=== PATIENT | male | born 1945 | race Caucasian/White ===

== ENCOUNTER 2017-04-23 03:19 | Inpatient (IN) | payer MEDICARE, OTHER ==
[~2017-04-23] VITALS: Ht 162.6 cm; Wt 107.0 kg
[2017-04-23] VITALS (13 sets, daily range): BP systolic 16–167; BP diastolic 56–96
[~2017-04-23 03:19] MED LIST: ASPI325T11 PO; CELE200C PO; LOSA25TA4 PO; LOSA50TA2 PO; METO25TA2 PO; METO25TA4 PO; METO25TA9 PO; MULT-245 PO; NITR0.4T22 SL; PRAS10TA9 PO; RANI150T6 PO; SIMV40TA PO; TAMS0.4C97 PO; TRAM-48 PO; VARD10TA4 PO
[2017-04-23 03:35] LABS: BASO # 0.1 x10^3/uL (0.0-0.2); BASO % 1 % (0-3); EOS % 3 % (0-3); HEMATOCRIT 41.4 % (39.0-53.0); LYMPH # 2.5 x10^3/uL (1.0-4.8); LYMPH % 40 % (24-48); MEAN CORPUSCULAR HEMOGLOBIN 31 pg (25-35); MEAN CORPUSCULAR HGB CONC 34 g/dL (31-37); MEAN CORPUSCULAR VOLUME 92 fL (79-100); MONO % 10 % (0-9); NEUT % 47 % (31-73); PLATELET COUNT 250 x10^3/uL (140-400); RED BLOOD COUNT 4.51 x10^6/uL (4.30-5.70); RED CELL DISTRIBUTION WIDTH 14.4 % (11.5-14.5); WHITE BLOOD COUNT 6.4 x10^3/uL (4.0-11.0)
[2017-04-23 03:44] LABS: CALCIUM 8.7 mg/dL (8.5-10.1); CREATININE 1.6 mg/dL (0.7-1.3); GFR 42.6; POTASSIUM 4.1 mmol/L (3.5-5.1)
[2017-04-23 03:49] LABS: ALBUMIN 3.5 g/dL (3.4-5.0); ALBUMIN/GLOBULIN RATIO 1.2 (1.0-1.7); TOTAL BILIRUBIN 0.5 mg/dL (0.2-1.0); TOTAL PROTEIN 6.5 g/dL (6.4-8.2)
[2017-04-23] MEDS ORDERED: NITROGLYCERIN OINT 1 GM PACKET. TP ONE (04:00)
[2017-04-23] MEDS ORDERED: NITROGLYCERIN SUBLINGUAL 0.4 MG BOTTLE OF 25. SL PRN (04:00)
[2017-04-23] MEDS ORDERED: ACETAMINOPHEN 325 MG TABLET. PO PRN (04:00)
[2017-04-23] MEDS ORDERED: ONDANSETRON PF 4 MG/2 ML VIAL. IV PRN (04:00)
--- NOTE | 2017-04-23 05:13 | PHYS DOC ---
Past Medical History Past Medical History: GERD, High Cholesterol, Hypertension, Other Additional Past Medical Histor: ED, urinary frequency Past Surgical History: Appendectomy, Coronary Bypass Surgery, Other Additional Past Surgical Histo: ortho, carpal tunnel, bilat ankles, R. elbow, disk replaced in neck Alcohol Use: None Drug Use: None Adult General Chief Complaint Chief Complaint: CHEST PAIN HPI HPI Patient is a 72 year old gentleman with a history significant for coronary disease and hypertension who had a stent placed approximately 2 weeks ago presents to the ER today complaining of sharp midsternal chest pressure that is identical to the pain that he had 2 to when he had his stent placed. Patient denies any fevers shakes chills nausea vomiting or diarrhea. Patient does admit to shortness of breath and diaphoresis. Patient denies any radiating pain. Patient reports that the pain started on he was sleeping and woke him up. Patient reports that the pain is almost completely resolved after getting medicine by EMS. Patient's physical exam is unremarkable. Patient's ER workup has been negative. Patient's EKG reveals normal sinus rhythm at a heart rate of [address]-T wave abnormalities without any evidence of ST elevation RI. Assessment and plan this is a 75 year-old gentleman who presents here today complaining of chest pain who had a recent cardiac catheter done and a stent placement. Patient does not recall who is PCP or transmission worker is. Given the patient's history of recent coronary disease and stent we will admit the patient for further cardiac evaluation. Review of Systems Review of Systems Constitutional: Denies fever or chills [] Eyes: Denies change in visual acuity, redness, or eye pain [] All other review systems are negative except as documented in the history of present illness portion. Current Medications Current Medications Current Medications Medications (Trade) Dose Ordered Sig/[facility] Start Time Stop Time Status Last Admin Dose Admin Acetaminophen (Tylenol) 650 mg PRN Q4HRS PRN 04/23/17 04:00 04/24/17 03:59 Nitroglycerin (Nitro-Bid Oint) 1 inch 1X ONCE 04/23/17 04:00 04/23/17 04:01 DC 04/23/17 04:11 1 INCH Nitroglycerin (Nitrostat) 0.4 mg PRN Q5MIN PRN 04/23/17 04:00 04/24/17 03:59 Ondansetron HCl (Zofran) 4 mg PRN Q8HRS PRN 04/23/17 04:00 04/24/17 03:59 Allergies Allergies Allergies Coded Allergies Type Severity Reaction Last Updated Verified codeine Allergy Intermediate Anxiety 03/20/14 Yes morphine Allergy Intermediate anxiety 04/14/17 Yes Physical Exam Physical Exam Constitutional: Well developed, well nourished, no acute distress, non-toxic appearance. [] HENT: Normocephalic, atraumatic, bilateral external ears normal, oropharynx moist, no oral exudates, nose normal. [] Eyes: PERRLA, EOMI, conjunctiva normal, no discharge. [] Neck: Normal range of motion, no tenderness, supple, no stridor. [] Cardiovascular:Heart rate regular rhythm, Lungs & Thorax: Bilateral breath sounds clear to auscultation [] Abdomen: Bowel sounds normal, soft, no tenderness, no masses, no pulsatile masses. [] Skin: Warm, dry, no erythema, no rash. [] Back: No tenderness, no CVA tenderness. [] Extremities: No tenderness, no cyanosis, no clubbing, ROM intact, no edema. [] Neurologic: Alert and oriented X 3, normal motor function, normal sensory function, no focal deficits noted. [] Psychologic: Affect normal, judgement normal, mood normal. [] Current Patient Data Vital Signs Vital Signs Date Time Temp Pulse Resp B/P (MAP) Pulse Ox O2 Delivery O2 Flow Rate FiO2 04/23/17 03:54 62 125/59 (81) 96 Room Air 04/23/17 03:23 97.9 18 97.9 Lab Values Laboratory Tests Test 04/23/17 03:31 White Blood Count 6.4 x10^3/uL (4.0-11.0) Red Blood Count 4.51 x10^6/uL (4.30-5.70) Hemoglobin 14.0 g/dL (13.0-17.5) Hematocrit 41.4 % (39.0-53.0) Mean Corpuscular Volume 92 fL (79-100) Mean Corpuscular Hemoglobin 31 pg (25-35) Mean Corpuscular Hemoglobin Concent 34 g/dL (31-37) Red Cell Distribution Width 14.4 % (11.5-14.5) Platelet Count 250 x10^3/uL (140-400) Neutrophils (%) (Auto) 47 % (31-73) Lymphocytes (%) (Auto) 40 % (24-48) Monocytes (%) (Auto) 10 % (0-9) H Eosinophils (%) (Auto) 3 % (0-3) Basophils (%) (Auto) 1 % (0-3) Neutrophils # (Auto) 3.0 x10^3uL (1.8-7.7) Lymphocytes # (Auto) 2.5 x10^3/uL (1.0-4.8) Monocytes # (Auto) 0.6 x10^3/uL (0.0-1.1) Eosinophils # (Auto) 0.2 x10^3/uL (0.0-0.7) Basophils # (Auto) 0.1 x10^3/uL (0.0-0.2) Sodium Level 144 mmol/L (136-145) Potassium Level 4.1 mmol/L (3.5-5.1) Chloride Level 108 mmol/L (98-107) H Carbon Dioxide Level 29 mmol/L (21-32) Anion Gap 7 (6-14) Blood Urea Nitrogen 23 mg/dL (8-26) Creatinine 1.6 mg/dL (0.7-1.3) H Estimated GFR (Cockcroft-Gault) 42.6 BUN/Creatinine Ratio 14 (6-20) Glucose Level 150 mg/dL (70-99) H Calcium Level 8.7 mg/dL (8.5-10.1) Total Bilirubin 0.5 mg/dL (0.2-1.0) Aspartate Amino Transferase (AST) 45 U/L (15-37) H Alanine Aminotransferase (ALT) 68 U/L (16-63) H Alkaline Phosphatase 76 U/L (46-116) Troponin I Quantitative < 0.017 ng/mL (0.000-0.055) Total Protein 6.5 g/dL (6.4-8.2) Albumin 3.5 g/dL (3.4-5.0) Albumin/Globulin Ratio 1.2 (1.0-1.7) Laboratory Tests 04/23/17 03:31 Laboratory Tests 04/23/17 03:31 EKG EKG [] Radiology/Procedures Radiology/Procedures [] Course & Med Decision Making Course & Med Decision Making Pertinent Labs and Imaging studies reviewed. (See chart for details) [] Dragon Disclaimer Dragon Disclaimer This electronic medical record was generated, in whole or in part, using a voice recognition dictation system. Departure Departure Impression: Primary Impression: Chest pain Disposition: 09 ADMITTED INPATIENT Admitting Physician: Evangelina Jacob Condition: IMPROVED Referrals: UNKNOWN PCP NAME (PCP) CECILIA BOWEN MD Apr 23, 2017 05:13
--- NOTE | 2017-04-23 05:20 | ACF ---
Admission Forms Criteria CHEST PAIN Clinical Indications for Admission to Inpatient Care (Place 'X' for any and all applicable criteria): Admission is indicated for chest pain and ANY ONE of the following(1)(2)(3)(4)(5 ): [ ]I. Angina with acute coronary syndrome (Also use Myocardial Infarction or Angina guideline) [ ]II. Hemodynamic instability [X]III. Angina needing acute intervention as indicated by ALL of the following( 11)(12): [X]a) Unstable angina is present as indicated by angina that is ANY ONE of the following: [ ]i) New onset [ ]ii) Nocturnal [ ]iii) Prolonged at rest [X]iv) Progressive [X]b) Angina warrants acute intervention as indicated by ANY ONE of the following: [ ]i) Recurrent angina (e.g, not responding as previously to treatment) [ ]ii) Angina at rest or with low-level activities despite initial medical therapy [ ]iii) New or presumably new ST-segment depression on ECG [ ]iv) Signs or symptoms of heart failure (eg, dyspnea, pulmonary edema) [ ]v) New or worsening mitral regurgitation [ ]vi) Hemodynamic instability [ ]vii) Dangerous arrhythmia (eg, sustained ventricular tachycardia) [X]viii) History of percutaneous coronary intervention within 6 months [ ]ix) History of coronary artery bypass graft surgery [ ]x) AMBAR risk score of 2 or greater[A] [ ]xi) History of Diabetes(14) [ ]xii) High-risk cardiac ischemia findings on noninvasive testing (e.g, echocardiogram, treadmill testing, nuclear scan) [ ]xiii) Chronic renal insufficiency (ie, estimated GFR less than 60 mL/min/1.732m) [ ]xiv) Left ventricular ejection fraction less than 40% [ ]IV. Evidence of CO (eg, cardiac biomarkers positive, ST-segment elevation on ECG) also use Myocardial Infarction Criteria Form. [ ]V. Pulmonary edema [ ]. Respiratory distress [ ]VII. Chest pain indicative of serious diagnosis other than coronary artery disease (eg, aortic dissection) [ ]VIII. Contraindications and/or Inappropriate clinical situations for Observational Care in patients with Chest Pain, when ANY ONE of the following is required: [ ]a) Patient with risk factor for pulmonary embolism, acute coronary syndrome and myocardial infarction (18) [ ]b) Patient with Pulmonary embolism require an average LOS of 4.3 days, therefore emergency department observation management is inappropriate 18,23 [ ]c) Painful condition/s in the elderly, have the highest rate of recidivism after emergency department observation management (10.8%) 20,21,22 [ ]d) Elevated cardiac biomarker requires intensive and exhaustive care (19) [ ]IX. General contraindications and/or Inappropriate clinical situations for Observational Care in patients with Chest Pain, when ANY ONE of the following is required: [ ]a) Prediction of prolongation of LOS based on ANY ONE of the following may be considered as a contraindication for observational care 2, 3, 4, 5, 6, 7, 8, 9, 10, 11 [ ]i) Age > 65 yrs. [ ]ii) Patient arriving by ambulance [ ]iii) Patient with high acuity [ ]iv) Patient requiring vital sign monitoring [ ]v) Patient on IV medication [ ]b) Systolic blood pressures 180mmHg 3,12 [ ]c) Patient with altered mental status including delirium and other alteration of consciousness, (3) [ ]d) Patient whose discharge disposition will be to a prison home or rehabilitation home should not be managed in Emergency Department Observation Unit. CMS rule requires 3 days hospital stay before such placement. 3,13 [ ]e) Patient with failure to thrive due to broad array of etiologies 3,16,17 [ ]f) Inability to ambulate 3,14 Extended stay beyond goal length of stay may be needed for (1)(28): [ ]a) Specific condition diagnosed after evaluation (eg, pulmonary embolism, aortic dissection) [ ]b) Unstable angina [ ]c) Continued suspicion of acute coronary syndrome with inability to complete needed cardiac evaluation (eg, patient clinically unable to undergo stress testing) [ ]d) Myocardial infarction (Contents from ANGINA and CHEST PAIN clinical indications for admission to inpatient care have been integrated in this form) The original [employer] content created by [employer] has been revised. The portions of the content which have been revised are identified through the use of italic text or in bold, and [employer] has neither reviewed nor approved the modified material. All other unmodified content is copyright [employer]. Please see references footnoted in the original [facility] edition 2016 Admission Criteria Met?: Yes SALAZAR OGDEN Apr 23, 2017 05:19
[2017-04-23] MEDS: fentaNYL PF VIAL 100 MCG/2 ML VIAL IV PRN ×2 (06:05→08:44)
--- NOTE | 2017-04-23 07:23 | RAD ---
Portable chest, 04/23/2017: History: Chest pain Comparison is made to a study from 04/13/2017. There as been a previous median sternotomy. The heart size and pulmonary vascularity are normal. The lungs are clear. There is no evidence of pleural fluid. IMPRESSION: No acute cardiopulmonary abnormality is detected.
[2017-04-23] MEDS ORDERED: FEXO180T81 PO (07:47)
[2017-04-23] MEDS ORDERED: METO25TA4 PO (07:47)
--- NOTE | 2017-04-23 08:19 | PDOC1 ---
History and Physical Date of Admission Date of Admission DATE: 04/23/17 TIME: 08:19 Identification/Chief Complaint Chief Complaint chest pain Problems: Source Source: Chart review, Patient History of Present Illness History of Present Illness Mr. Killian, is a 72 year old gentleman who awoke with acute left of sternal chest pain, called EMS from home. Pain 6/10, mild fluctuation in pain, some relief with IV meds for about 2 hours. He had a stent placed 2 weeks ago, after having the same sharp midsternal chest pressure. He had resolution of pain for 2 weeks until 0100 this AM compliance with all meds reported, he has not had a f.u appt yet. Past Medical History Cardiovascular: CAD, HTN, Hyperlipidemia, Other Pulmonary: No pertinent hx CENTRAL NERVOUS SYSTEM: Carpal Tunnel Syndrome, Vertigo GI: Constipation, GERD Heme/Onc: No pertinent hx Hepatobiliary: No pertinent hx Psych: No pertinent hx Musculoskeletal: Osteoarthritis Rheumatologic: No pertinent hx Infectious disease: No pertinent hx Renal/: Benign prostatic enlarg., Other Endocrine: No pertinent hx Past Surgical History Past Surgical History: Appendectomy, CABG (2010), Cataract Removal, Hernia Repair, Total knee replacement, Tonsillectomy, Other Family History Family History: Cancer Social History Smoke: Quit (vry long time ago) ALCOHOL: none Drugs: None Current Problem List Problem List Problems Medical Problems: (1) Chest pain Status: Acute Problems: Current Medications Current Medications Current Medications Ondansetron HCl (Zofran) 4 mg PRN Q8HRS PRN IV NAUSEA/VOMITING; Start 04/23/17 at 04:00; Stop 04/24/17 at 03:59 Acetaminophen (Tylenol) 650 mg PRN Q4HRS PRN PO FEVER; Start 04/23/17 at 04:00 ; Stop 04/24/17 at 03:59 Nitroglycerin (Nitrostat) 0.4 mg PRN Q5MIN PRN SL CHEST PAIN Last administered on 04/23/17 05:37; Start 04/23/17 at 04:00; Stop 04/24/17 at 03:59 Nitroglycerin (Nitro-Bid Oint) 1 inch 1X ONCE TP Last administered on 04:11; Start 04/23/17 at 04:00; Stop 04/23/17 at 04:01; Status DC Fentanyl Citrate (Fentanyl 2ml Vial) 50 mcg PRN Q2HR PRN IV PAIN Last administered on 04/23/17t 06:05; Start 04/23/17 at 06:00 Aspirin (Gayle Aspirin) 325 mg DAILYWBKFT PO ; Start 04/23/17 at 09:00 Losartan Potassium (Cozaar) 50 mg DAILY PO ; Start 04/23/17 at 09:00 Metoprolol Succinate (Toprol Xl) 12.5 mg DAILY PO ; Start 04/23/17 at 09:00 Prasugrel (Effient) 10 mg DAILYWBKFT PO ; Start 04/23/17 at 09:00 Simvastatin (Zocor) 40 mg HS PO ; Start 04/23/17 at 21:00 Tamsulosin HCl (Flomax) 0.4 mg HS PO ; Start 04/23/17 at 21:00 Famotidine (Pepcid) 20 mg DAILY PO ; Start 04/23/17 at 09:00 Active Scripts Active Cozaar (Losartan Potassium) 50 Mg Tablet 50 Mg PO DAILY 30 Days Effient (Prasugrel Hcl) 10 Mg Tablet 10 Mg PO DAILYWBKFT 30 Days Metoprolol Succinate ( Xl ) (Metoprolol Succinate) 25 Mg Tab.er.24h 12.5 Mg PO DAILY 30 Days Reported Marcia Allergy (Fexofenadine Hcl) 180 Mg Tablet 180 Mg PO DAILY Metoprolol Tartrate 25 Mg Tablet 12.5 Mg PO BID NITROGLYCERIN SubLingual (Nitroglycerin) 0.4 Mg Tab.subl 0.4 Mg SL PRN Q5MIN PRN Multi Vitamin Daily (Multivitamin) 1 Each Tablet 1 Each PO DAILY Flomax (Tamsulosin Hcl) 0.4 Mg Cap.er.24h 0.4 Mg PO HS Ultram (Tramadol Hcl) 50 Mg Tablet 50 Mg PO HS Zocor (Simvastatin) 40 Mg Tablet 40 Mg PO HS Zantac (Ranitidine Hcl) 150 Mg Tablet 150 Mg PO BID Aspirin Ec (Aspirin) 325 Mg Tablet.dr 325 Mg PO DAILY Levitra (Vardenafil Hcl) 10 Mg Tablet 10 Mg PO PRN Allergies Allergies: Coded Allergies: codeine (Verified Allergy, Intermediate, Anxiety, 03/20/14) morphine (Verified Allergy, Intermediate, anxiety, 04/14/17) ROS General: No: Chills, Night Sweats, Fatigue, Malaise, Appetite, Other PSYCHOLOGICAL ROS: No: Anxiety, Behavioral Disorder, Concentration difficultie , Decreased libido, Depression, Disorientation, Hallucinations, Hostility, Irritablity, Memory difficulties, Mood Swings, Obsessive thoughts, Physical abuse, Sexual abuse, Sleep disturbances, Suicidal ideation, Other Eyes: No Blurry vision, No Decreased vision, No Double vision, No Dry eyes, No Excessive tearing, No Eye Pain, No Itchy Eyes, No Loss of vision, No Photophobia , No Scotomata, No Uses contacts, No Uses glasses, No Other HEENT: No: Heacaches, Visual Changes, Hearing change, Nasal congestion, Nasal discharge, Oral lesions, Sinus pain, Sore Throat, Epistaxis, Sneezing, Snoring, Tinnitus, Vertigo, Vocal changes, Other Hematological and Lymphatic: No: Bleeding Problems, Blood Clots, Blood Transfusions, Brusing, Night Sweats, Pallor, Swollen Lymph Nodes, Other ENDOCRINE: No: Breast Changes, Galactorrhea, Hair Pattern Changes, Hot Flashes , Malaise/lethargy, Mood Swings, Palpitations, Polydipsia/polyuria, Skin Changes , Temperature Intolerance, Unexpected Weight Changes, Other Respiratory: No: Cough, Hemoptysis, Orthopnea, Pleuritic Pain, Shortness of breath, SOB with excertion, Sputum Changes, Stridor, Tachypnea, Wheezing, Other Cardiovascular: yes Chest Pain, No Palpitations, No Orthopnea, No Paroxysmal Noc. Dyspnea, No Edema, No Lt Headedness, No Other Gastrointestinal: No Nausea, No Vomiting, No Abdominal Pain, No Diarrhea, No Constipation, No Melena, No Hematochezia, No Other Genitourinary: No Dysuria, No Frequency, No Incontinence, No Hematuria, No Retention, No Discharge, No Urgency, No Pain, No Flank Pain, No Other, No , No , No , No , No , No , No Musculoskeletal: No Gait Disturbance, No Joint Pain, No Joint Stiffness, No Joint Swelling, No Muscle Pain, No Muscular Weakness, No Pain In:, No Swelling In:, No Other Neurological: No Behavorial Changes, No Bowel/Bladder ControlChng, No Confusion , No Dizziness, No Gait Disturbance, No Headaches, No Impaired Coord/balance, No Memory Loss, No Numbness/Tingling, No Seizures, No Speech Problems, No Tremors, No Visual Changes, No Weakness, No Other Skin: No Dry Skin, No Eczema, No Hair Changes, No Lumps, No Mole Changes, No Mottling, No Nail Changes, No Pruritus, No Rash, No Skin Lesion Changes, No Other, No Acne Physical Exam Physical Exam pain 04/18 General: Alert, Oriented X3, Cooperative, No acute distress HEENT: Atraumatic, PERRLA, EOMI, Mucous membr. moist/pink Lungs: Clear to auscultation, Normal air movement Heart: S1S2, no murmurs, other (some pain over sternum, i might have pressed on a sternotomy wire) Abdomen: Normal bowel sounds, Soft Rectal Exam: not examined Extremities: No edema, Normal pulses Skin: No significant lesion Neuro: Normal gait, Normal speech, Normal tone, Sensation intact Psych/Mental Status: Mental status NL, Mood NL Vitals Vitals Vital Signs Date Time Temp Pulse Resp B/P (MAP) Pulse Ox O2 Delivery O2 Flow Rate FiO2 04/23/17 07:00 97.7 63 18 120/59 (79) 95 Room Air 97.7 Labs Labs Laboratory Tests Test 04/23/17 03:31 White Blood Count 6.4 x10^3/uL (4.0-11.0) Red Blood Count 4.51 x10^6/uL (4.30-5.70) Hemoglobin 14.0 g/dL (13.0-17.5) Hematocrit 41.4 % (39.0-53.0) Mean Corpuscular Volume 92 fL (79-100) Mean Corpuscular Hemoglobin 31 pg (25-35) Mean Corpuscular Hemoglobin Concent 34 g/dL (31-37) Red Cell Distribution Width 14.4 % (11.5-14.5) Platelet Count 250 x10^3/uL (140-400) Neutrophils (%) (Auto) 47 % (31-73) Lymphocytes (%) (Auto) 40 % (24-48) Monocytes (%) (Auto) 10 % (0-9) Eosinophils (%) (Auto) 3 % (0-3) Basophils (%) (Auto) 1 % (0-3) Neutrophils # (Auto) 3.0 x10^3uL (1.8-7.7) Lymphocytes # (Auto) 2.5 x10^3/uL (1.0-4.8) Monocytes # (Auto) 0.6 x10^3/uL (0.0-1.1) Eosinophils # (Auto) 0.2 x10^3/uL (0.0-0.7) Basophils # (Auto) 0.1 x10^3/uL (0.0-0.2) Sodium Level 144 mmol/L (136-145) Potassium Level 4.1 mmol/L (3.5-5.1) Chloride Level 108 mmol/L (98-107) Carbon Dioxide Level 29 mmol/L (21-32) Anion Gap 7 (6-14) Blood Urea Nitrogen 23 mg/dL (8-26) Creatinine 1.6 mg/dL (0.7-1.3) Estimated GFR (Cockcroft-Gault) 42.6 BUN/Creatinine Ratio 14 (6-20) Glucose Level 150 mg/dL (70-99) Calcium Level 8.7 mg/dL (8.5-10.1) Total Bilirubin 0.5 mg/dL (0.2-1.0) Aspartate Amino Transf (AST/SGOT) 45 U/L (15-37) Alanine Aminotransferase (ALT/SGPT) 68 U/L (16-63) Alkaline Phosphatase 76 U/L (46-116) Troponin I Quantitative < 0.017 ng/mL (0.000-0.055) Total Protein 6.5 g/dL (6.4-8.2) Albumin 3.5 g/dL (3.4-5.0) Albumin/Globulin Ratio 1.2 (1.0-1.7) Laboratory Tests Test 04/23/17 03:31 White Blood Count 6.4 x10^3/uL (4.0-11.0) Red Blood Count 4.51 x10^6/uL (4.30-5.70) Hemoglobin 14.0 g/dL (13.0-17.5) Hematocrit 41.4 % (39.0-53.0) Mean Corpuscular Volume 92 fL (79-100) Mean Corpuscular Hemoglobin 31 pg (25-35) Mean Corpuscular Hemoglobin Concent 34 g/dL (31-37) Red Cell Distribution Width 14.4 % (11.5-14.5) Platelet Count 250 x10^3/uL (140-400) Neutrophils (%) (Auto) 47 % (31-73) Lymphocytes (%) (Auto) 40 % (24-48) Monocytes (%) (Auto) 10 % (0-9) Eosinophils (%) (Auto) 3 % (0-3) Basophils (%) (Auto) 1 % (0-3) Neutrophils # (Auto) 3.0 x10^3uL (1.8-7.7) Lymphocytes # (Auto) 2.5 x10^3/uL (1.0-4.8) Monocytes # (Auto) 0.6 x10^3/uL (0.0-1.1) Eosinophils # (Auto) 0.2 x10^3/uL (0.0-0.7) Basophils # (Auto) 0.1 x10^3/uL (0.0-0.2) Sodium Level 144 mmol/L (136-145) Potassium Level 4.1 mmol/L (3.5-5.1) Chloride Level 108 mmol/L (98-107) Carbon Dioxide Level 29 mmol/L (21-32) Anion Gap 7 (6-14) Blood Urea Nitrogen 23 mg/dL (8-26) Creatinine 1.6 mg/dL (0.7-1.3) Estimated GFR (Cockcroft-Gault) 42.6 BUN/Creatinine Ratio 14 (6-20) Glucose Level 150 mg/dL (70-99) Calcium Level 8.7 mg/dL (8.5-10.1) Total Bilirubin 0.5 mg/dL (0.2-1.0) Aspartate Amino Transf (AST/SGOT) 45 U/L (15-37) Alanine Aminotransferase (ALT/SGPT) 68 U/L (16-63) Alkaline Phosphatase 76 U/L (46-116) Troponin I Quantitative < 0.017 ng/mL (0.000-0.055) Total Protein 6.5 g/dL (6.4-8.2) Albumin 3.5 g/dL (3.4-5.0) Albumin/Globulin Ratio 1.2 (1.0-1.7) VTE Prophylaxis Ordered VTE Prophylaxis Devices: No VTE Pharmacological Prophylaxi: Yes Assessment/Plan Assessment/Plan Angina, r/o ACS consult CV, recent stent 2 weeks ago, he reports compliance with Dual anti-plt HTN, home meds 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
[2017-04-23] MEDS ORDERED: IV NORMAL SALINE 1000ML BAG 1,000 ML IV ONE ×2 (08:30→16:15)
[2017-04-23] MEDS: PRASUGREL 10 MG TABLET. PO SCH (08:32)
[2017-04-23] MEDS: LOSARTAN POTASSIUM 50 MG TABLET. PO SCH (08:33)
[2017-04-23] MEDS: ASPIRIN 325 MG TABLET PO SCH (08:33)
[2017-04-23] MEDS: METOPROLOL SUCC 24HR ER 25 MG TAB.ER.24H. PO SCH (08:44)
--- NOTE | 2017-04-23 08:45 | EKG ---
[facility] [address] [place] [address] Test Date: 2017-04-23 Test Time: 06:54:17 Pat Name: EDWIN JAY Department: Room: [facility] Gender: M Behavioral Psychologist: HUSSEIN : 1945 Requested By: CHRISTOPHER SOLANO Order Number: [id number] Reading MD: Vinh Demarco Measurements Intervals [place] Rate: 67 P: 30 SC: 192 QRS: -37 QRSD: 116 T: 10 QT: 408 QTc: 434 Interpretive Statements SINUS RHYTHM ABNORMAL LEFT AXIS DEVIATION LEFT ANTERIOR FASCICULAR BLOCK Electronically Signed On 04-23-2017 11:16:52 CDT by Vinh Demarco
[2017-04-23] MEDS ORDERED: FAMOTIDINE 20 MG TABLET. PO SCH (09:00)
[2017-04-23] MEDS ORDERED: LIDOCAINE 2% 20 ML VIAL. ONE (09:56)
[2017-04-23] MEDS ORDERED: IODIXANOL 320 MG/ML 100 ML VIAL. ONE (09:56)
[2017-04-23] MEDS ORDERED: fentaNYL PF VIAL 250 MCG/5 ML VIAL ONE (10:21)
[2017-04-23] MEDS ORDERED: MIDAZOLAM HCL/PF 5 MG/5 ML VIAL. ONE (10:21)
--- NOTE | 2017-04-23 10:24 | EKG ---
[facility] [address] [place] [address] Test Date: 2017-04-23 Test Time: 03:21:30 Pat Name: EDWIN JAY Department: Room: [facility] Gender: M Relay Motorman: : 1945 Requested By: CECILIA BOWEN Order Number: [id number] Reading MD: Vinh Demarco Measurements Intervals [place] Rate: 67 P: 28 [place]: 188 QRS: -31 QRSD: 116 T: 15 QT: 398 QTc: 423 Interpretive Statements SINUS RHYTHM ABNORMAL LEFT AXIS DEVIATION LEFT ANTERIOR FASCICULAR BLOCK Electronically Signed On 04-23-2017 11:16:46 CDT by Vinh Demarco
[2017-04-23] MEDS ORDERED: IODIXANOL 320 MG/ML 100 ML VIAL. IART ONE (10:30)
[2017-04-23] MEDS ORDERED: fentaNYL PF VIAL 250 MCG/5 ML VIAL IV ONE (10:30)
[2017-04-23] MEDS ORDERED: MIDAZOLAM HCL/PF 5 MG/5 ML VIAL. IV ONE (10:30)
[2017-04-23] MEDS ORDERED: LIDOCAINE 2% 20 ML VIAL. IJ ONE (10:30)
[2017-04-23] MEDS ORDERED: CONTRAST GIVEN MC PRN (10:45)
--- NOTE | 2017-04-23 11:55 | PDOC2 ---
CARDIAC CONSULT DATE OF CONSULT Date of Consult DATE: 04/23/17 TIME: 11:39 REASON FOR CONSULT Reason for Consult: Chest pain, recent stent REFERRING PHYSICIAN Referring Physician: Agatha SOURCE Source: Chart review, Patient HISTORY OF PRESENT ILLNESS HISTORY OF PRESENT ILLNESS This is a pleasant 72 yo male admitted for complains of chest pain. Reports that this was midchest sharp discomfort with no radiating pain that actually woke him up. Positive for some SOA, and diaphoresis but no palpitations or nausea. No recent falls or injury and has been doing well post PCI/COLETTE few days ago till yesterday. She has been compliant with his DAPT and cardiac regimen. PAST MEDICAL HISTORY Past Medical History Cardiovascular: CAD (with CABG X 4 in 2010 at [facility] to LAD; sequential SVG to Diagonal and intermediate ramus; SVG to PDA), HTN, Hyperlipidemia, Other ( RGSV insufficiency - asymptomatic) Pulmonary: No pertinent hx CENTRAL NERVOUS SYSTEM: Carpal Tunnel Syndrome (right hand with release surgery ), Vertigo GI: Constipation, GERD Heme/Onc: No pertinent hx Hepatobiliary: No pertinent hx Psych: No pertinent hx Musculoskeletal: Osteoarthritis (with DJD) Infectious disease: No pertinent hx ENT: No pertinent hx, Allergic Rhinitis Renal/: Benign prostatic enlarg., Other (erectile dysfunction ) Endocrine: No pertinent hx Dermatology: Basal cell PAST SURGICAL HISTORY Past Surgical History Appendectomy, CABG (2009), Cataract Removal (bilateral ), Hernia Repair, Total knee replacement (right), Tonsillectomy, Other (bilateral ankle surgery with hardware X 3; right elbow bone spur; anterior cervical fusion). PCI/COLETTE to LAD/ LM 04/16/2017 FAMILY HISTORY Family History: Cancer SOCIAL HISTORY Social History Smoke: Quit (1977) ALCOHOL: none Drugs: None Lives: with Family CURRENT MEDICATIONS CURRENT MEDICATIONS Current Medications Medications (Trade) Dose Ordered Sig/Mona Route PRN Reason Start Time Stop Time Status Last Admin Dose Admin Nitroglycerin (Nitrostat) 0.4 mg PRN Q5MIN PRN SL CHEST PAIN 04/23/17 04:00 04/24/17 03:59 04/23/17 05:37 Nitroglycerin (Nitro-Bid Oint) 1 inch 1X ONCE TP 04/23/17 04:00 04/23/17 04:01 DC 04/23/17 04:11 Fentanyl Citrate (Fentanyl 2ml Vial) 50 mcg PRN Q2HR PRN IV PAIN 04/23/17 06:00 04/23/17 08:44 Aspirin (Gayle Aspirin) 325 mg DAILYWBKFT PO 04/23/17 09:00 04/23/17 08:33 Losartan Potassium (Cozaar) 50 mg DAILY PO 04/23/17 09:00 04/23/17 08:33 Metoprolol Succinate (Toprol Xl) 12.5 mg DAILY PO 04/23/17 09:00 04/23/17 08:44 Prasugrel (Effient) 10 mg DAILYWBKFT PO 04/23/17 09:00 04/23/17 08:32 Famotidine (Pepcid) 20 mg DAILY PO 04/23/17 09:00 04/23/17 08:32 Sodium Chloride 1,000 ml @ 100 mls/hr 1X ONCE IV 04/23/17 08:30 04/23/17 18:29 04/23/17 08:45 Heparin Sodium/ Sodium Chloride 1,000 unit 1X ONCE IART 04/23/17 10:30 04/23/17 10:32 DC 04/23/17 10:44 Midazolam HCl (Versed) 5 mg 1X ONCE IV 04/23/17 10:30 04/23/17 10:32 DC 04/23/17 10:45 Fentanyl Citrate (Fentanyl 5ml Vial) 250 mcg 1X ONCE IV 04/23/17 10:30 04/23/17 10:32 DC 04/23/17 10:44 Iodixanol (Visipaque 320) 100 ml 1X ONCE IART 04/23/17 10:30 04/23/17 10:32 DC 04/23/17 10:44 Lidocaine HCl 20 ml 1X ONCE IJ 04/23/17 10:30 04/23/17 10:32 DC 04/23/17 10:44 ALLERGIES ALLERGIES: Coded Allergies: codeine (Verified Allergy, Intermediate, Anxiety, 03/20/14) morphine (Verified Allergy, Intermediate, anxiety, 04/14/17) ROS Review of System 14 point ROS evaluated with pertinent positives noted per HPI PHYSICAL EXAM General: Alert, Oriented X3, Cooperative, No acute distress HEENT: Atraumatic, Mucous membr. moist/pink Lungs: Clear to auscultation, Normal air movement Heart: Regular rate (SR), Normal S1, Normal S2 Abdomen: Soft, No tenderness Extremities: No cyanosis, No edema Skin: No breakdown, No significant lesion Neuro: Normal speech, Sensation intact Psych/Mental Status: Mental status NL, Mood NL MUSCULOSKELETAL: Osteoarthritic changes both hands VITALS VITALS Vital Signs Date Time Temp Pulse Resp B/P (MAP) Pulse Ox O2 Delivery O2 Flow Rate FiO2 04/23/17 11:00 97.8 68 20 121/68 (85) 94 Room Air 97.8 04/23/17 10:44 2.0 LABS Lab: Laboratory Tests Test 04/23/17 03:31 04/23/17 08:24 04/23/17 09:50 White Blood Count 6.4 x10^3/uL (4.0-11.0) Red Blood Count 4.51 x10^6/uL (4.30-5.70) Hemoglobin 14.0 g/dL (13.0-17.5) Hematocrit 41.4 % (39.0-53.0) Mean Corpuscular Volume 92 fL (79-100) Mean Corpuscular Hemoglobin 31 pg (25-35) Mean Corpuscular Hemoglobin Concent 34 g/dL (31-37) Red Cell Distribution Width 14.4 % (11.5-14.5) Platelet Count 250 x10^3/uL (140-400) Neutrophils (%) (Auto) 47 % (31-73) Lymphocytes (%) (Auto) 40 % (24-48) Monocytes (%) (Auto) 10 % (0-9) Eosinophils (%) (Auto) 3 % (0-3) Basophils (%) (Auto) 1 % (0-3) Neutrophils # (Auto) 3.0 x10^3uL (1.8-7.7) Lymphocytes # (Auto) 2.5 x10^3/uL (1.0-4.8) Monocytes # (Auto) 0.6 x10^3/uL (0.0-1.1) Eosinophils # (Auto) 0.2 x10^3/uL (0.0-0.7) Basophils # (Auto) 0.1 x10^3/uL (0.0-0.2) Sodium Level 144 mmol/L (136-145) Potassium Level 4.1 mmol/L (3.5-5.1) Chloride Level 108 mmol/L (98-107) Carbon Dioxide Level 29 mmol/L (21-32) Anion Gap 7 (6-14) Blood Urea Nitrogen 23 mg/dL (8-26) Creatinine 1.6 mg/dL (0.7-1.3) Estimated GFR (Cockcroft-Gault) 42.6 BUN/Creatinine Ratio 14 (6-20) Glucose Level 150 mg/dL (70-99) Calcium Level 8.7 mg/dL (8.5-10.1) Total Bilirubin 0.5 mg/dL (0.2-1.0) Aspartate Amino Transf (AST/SGOT) 45 U/L (15-37) Alanine Aminotransferase (ALT/SGPT) 68 U/L (16-63) Alkaline Phosphatase 76 U/L (46-116) Troponin I Quantitative < 0.017 ng/mL (0.000-0.055) < 0.017 ng/mL (0.000-0.055) < 0.017 ng/mL (0.000-0.055) Total Protein 6.5 g/dL (6.4-8.2) Albumin 3.5 g/dL (3.4-5.0) Albumin/Globulin Ratio 1.2 (1.0-1.7) Magnesium Level 2.1 mg/dL (1.8-2.4) ECHOCARDIOGRAM ECHOCARDIOGRAM <Conclusion> Left ventricle systolic function is low normal. The Ejection Fraction is 50% Septal motion consistent with post-operative state. DATE: 04/14/17 1615 HEART CATH HEART CATH Conclusion 1. Normal left-sided filling pressures. 2. Severe three-vessel coronary artery disease with ostial LAD and distal left main involvement. 3. 3 of 4 bypass grafts patent with occlusion of the PATRICIO to LAD Recommendations Consider high risk rotational atherectomy and PCI of the distal left main and ostial LAD for symptomatically coronary artery disease. Obtain routine echocardiogram. DATE: 04/14/17 1648 Conclusion 1. Successful rotational atherectomy, PTCA and PCI of the LAD and LM with implantation of a Xience 2.75/15 COLETTE, post-dilated with a 3.0 mm balloon. 2. Severe diffuse diabetic arteriosclerosis with negative remodeling. Recommendations ASA 81mg daily Prasugrel 10mg daily. High dose statin therapy Referral to cardiac rehab. DATE: 04/16/17 0801 ASSESSMENT/PLAN ASSESSMENT/PLAN 1. Chest pain: notable for unstable angina presentation with recent PCI/COLETTE with rotational atherectomy to LAD/LM 2. CAD; CABG x4. 3. HTN: controlled 4. HLP 5. GERD 6. CKD3? Recommendations 1. Worrisome symptoms with multiple prior unstable angina and with recent PCI/ COLETTE. [facility] today 2. Continue with DAPT and secondary prevention 3. Will change pepcid to PPI. 4. Encourage cardiac rehab Problems: STORMY WALTER APRN Apr 23, 2017 11:55
--- NOTE | 2017-04-23 13:11 | CARD ---
APPROVED REPORT Procedure(s) performed: Left Coronary angiography Moderate Sedation - 25 minutes HISTORY The patient is a 72 year-old male with a history of : diabetes mellitus with treatment, coronary mini ry disease, tobacco history() . INDICATION The indication(s) include : atypical chest pain , Recently underwent LM/LAD stenting with rotational atherectomy. Readmitted with chest pain. Taken to the gold leaf laborer to rule out significant pathology.. CASE TECHNIQUE During this case, Fluoroscopy and low osmolar contrast were used for imaging. PROCEDURE NARRATIVE The patient was brought electively to the cardiac catheterization lab. A timeout was performed confi rming the patient's name, date of , procedure, and site of procedure. All necessary personnel w ere wearing the appropriate protective equipment and radiation monitor devices. After explaining the risks and benefits of the procedure and alternatives, informed consent was obtained. (See nursing no darryl for medications administered). The left groin was sterilely prepped and draped in the usual fas ion. The left groin was infiltrated with 20 mL of 2% lidocaine for subcutaneous anesthesia. A 6 Fsh eath was inserted into the left femoral artery without difficulty via the modified seldinger techniqu e with an 18G needle and a J-tipped guidewire. Limited diagnostic angiography was performed with a J L4 catheter. At case completion, the left femoral sheath was removed and hemostasis was achieved with an Angioseal Device. CORONARY ANGIOGRAPHY: LM is a large caliber vessel a patent stent in the mid to distal segment extending into the proximal LAD. Conclusion 1. Widely patent LM/LAD stent. Recommendations Aggressive Medical Therapy
[2017-04-23] MEDS: oxyCODONE/APAP 5/325 1 TAB TABLET PO PRN (16:28)
[2017-04-23] MEDS ORDERED: SIMVASTATIN 40 MG TABLET. PO SCH (21:00)
[2017-04-23] MEDS ORDERED: TAMSULOSIN 0.4 MG CAP.ER.24H. PO SCH (21:00)
[2017-04-24] MEDS: oxyCODONE/APAP 5/325 1 TAB TABLET PO PRN ×2 (03:01→08:18)
[2017-04-24 03:15] VITALS: BP 146/80
[2017-04-24 04:30] LABS: BASO % 1 % (0-3); EOS % 3 % (0-3); HEMATOCRIT 40.5 % (39.0-53.0); HEMOGLOBIN 13.7 g/dL (13.0-17.5); LYMPH # 1.9 x10^3/uL (1.0-4.8); LYMPH % 33 % (24-48); MEAN CORPUSCULAR HEMOGLOBIN 31 pg (25-35); MEAN CORPUSCULAR HGB CONC 34 g/dL (31-37); MEAN CORPUSCULAR VOLUME 92 fL (79-100); MONO % 7 % (0-9); NEUT % 56 % (31-73); PLATELET COUNT 235 x10^3/uL (140-400); RED BLOOD COUNT 4.42 x10^6/uL (4.30-5.70); RED CELL DISTRIBUTION WIDTH 14.6 % (11.5-14.5); WHITE BLOOD COUNT 5.7 x10^3/uL (4.0-11.0)
[2017-04-24 04:54] LABS: ALBUMIN 3.4 g/dL (3.4-5.0); ALBUMIN/GLOBULIN RATIO 1.2 (1.0-1.7); CALCIUM 8.4 mg/dL (8.5-10.1); CREATININE 1.5 mg/dL (0.7-1.3); GFR 45.9; POTASSIUM 4.8 mmol/L (3.5-5.1); TOTAL BILIRUBIN 0.5 mg/dL (0.2-1.0); TOTAL PROTEIN 6.2 g/dL (6.4-8.2)
[2017-04-24 07:00] VITALS: BP 114/62
[2017-04-24] MEDS ORDERED: PANTOPRAZOLE 40 MG TABLET.DR. PO SCH (07:30)
[2017-04-24] MEDS: ASPIRIN 325 MG TABLET PO SCH (08:18)
[2017-04-24] MEDS: PRASUGREL 10 MG TABLET. PO SCH (08:18)
[2017-04-24] MEDS: METOPROLOL SUCC 24HR ER 25 MG TAB.ER.24H. PO SCH (08:19)
[2017-04-24] MEDS: LOSARTAN POTASSIUM 50 MG TABLET. PO SCH (08:19)
[2017-04-24] MEDS ORDERED: LIDOCAINE (700MG/PATCH) PATCH. TD SCH (09:30)
[2017-04-24] MEDS ORDERED: ACETAMINOPHEN 325 MG TABLET. PO ONE (09:30)
[2017-04-24 11:00] VITALS: BP 144/80
--- NOTE | 2017-04-24 12:12 | PDOC ---
CARDIO Progress Notes Date and Time Date of Service 04/24/2017 Time of Evaluation 1015 Subjective Subjective: No Chest Pain, No shortness of breath, No Palpitations, No Dizziness Vitals Vitals Vital Signs Date Time Temp Pulse Resp B/P (MAP) Pulse Ox O2 Delivery O2 Flow Rate FiO2 04/24/17 11:00 98.0 73 20 144/80 (101) 96 Room Air 98.0 04/24/17 09:20 2.0 Weight Weight [ ] Input and Output Intake and Output Intake and Output 04/24/17 07:00 Intake Total 1220 ml Balance 1220 ml Intake Oral 400 ml IV Total 820 ml # Voids 2 Laboratory Labs Laboratory Tests Test 04/23/17 15:16 04/24/17 04:17 Troponin I Quantitative < 0.017 ng/mL (0.000-0.055) White Blood Count 5.7 x10^3/uL (4.0-11.0) Red Blood Count 4.42 x10^6/uL (4.30-5.70) Hemoglobin 13.7 g/dL (13.0-17.5) Hematocrit 40.5 % (39.0-53.0) Mean Corpuscular Volume 92 fL (79-100) Mean Corpuscular Hemoglobin 31 pg (25-35) Mean Corpuscular Hemoglobin Concent 34 g/dL (31-37) Red Cell Distribution Width 14.6 % (11.5-14.5) Platelet Count 235 x10^3/uL (140-400) Neutrophils (%) (Auto) 56 % (31-73) Lymphocytes (%) (Auto) 33 % (24-48) Monocytes (%) (Auto) 7 % (0-9) Eosinophils (%) (Auto) 3 % (0-3) Basophils (%) (Auto) 1 % (0-3) Neutrophils # (Auto) 3.2 x10^3uL (1.8-7.7) Lymphocytes # (Auto) 1.9 x10^3/uL (1.0-4.8) Monocytes # (Auto) 0.4 x10^3/uL (0.0-1.1) Eosinophils # (Auto) 0.2 x10^3/uL (0.0-0.7) Basophils # (Auto) 0.0 x10^3/uL (0.0-0.2) Sodium Level 141 mmol/L (136-145) Potassium Level 4.8 mmol/L (3.5-5.1) Chloride Level 108 mmol/L (98-107) Carbon Dioxide Level 28 mmol/L (21-32) Anion Gap 5 (6-14) Blood Urea Nitrogen 22 mg/dL (8-26) Creatinine 1.5 mg/dL (0.7-1.3) Estimated GFR (Cockcroft-Gault) 45.9 BUN/Creatinine Ratio 15 (6-20) Glucose Level 124 mg/dL (70-99) Calcium Level 8.4 mg/dL (8.5-10.1) Magnesium Level 2.0 mg/dL (1.8-2.4) Total Bilirubin 0.5 mg/dL (0.2-1.0) Aspartate Amino Transf (AST/SGOT) 43 U/L (15-37) Alanine Aminotransferase (ALT/SGPT) 68 U/L (16-63) Alkaline Phosphatase 73 U/L (46-116) Total Protein 6.2 g/dL (6.4-8.2) Albumin 3.4 g/dL (3.4-5.0) Albumin/Globulin Ratio 1.2 (1.0-1.7) Physical Exam HEENT: Neck Supple W Full Motion Chest: Symmetric LUNGS: Clear to Auscultation Heart: S1S2, RRR, other (some pain over sternum, i might have pressed on a sternotomy wire) Abdomen: Soft N/T Extremities: No Calf Tenderness Neurology: alert, oriented, follow commands Other Exams left groin arteriotomy site intact, no swelling or erythema, neurovascular status to bilateral LE intact. Assessment Assessment 1. Chest pain: notable for unstable angina presentation with recent PCI/COLETTE with rotational atherectomy to LAD/LM This prompted repeat LHC and noted with stent patency. Source likely GI. 2. CAD; CABG x4. stable 3. HTN: controlled 4. HLP 5. GERD exacerbation 6. Likely CKD3 Recommendations 1. Worrisome symptoms with multiple prior unstable angina and with recent PCI/ COLETTE. [facility] today 2. Continue with DAPT (ASA/effient) and secondary prevention measures 3. Continue with PPI 4. Outpt tanner receiving PT for his right knee, encourage to consider incorporating cardiac rehab 5. May DC to home today with post cath intruction and f/u in office on 05/07. STORMY WALTER OYSTER HARVESTER Apr 24, 2017 12:12
--- NOTE | 2017-04-24 14:00 | PDOC ---
PROGRESS NOTES Chief Complaint Chief Complaint 1. Chest pain: acute on prior, now stable angina - recently unstable, s/p cath 2. CAD; CABG x4. stable 3. HTN: controlled 4. HLP 5. GERD exacerbation 6. Likely CKD3 History of Present Illness History of Present Illness DC home Vitals Vitals Vital Signs Date Time Temp Pulse Resp B/P (MAP) Pulse Ox O2 Delivery O2 Flow Rate FiO2 04/24/17 11:00 98.0 73 20 144/80 (101) 96 Room Air 98.0 04/24/17 09:20 2.0 Physical Exam General: Alert, Oriented X3, Cooperative, No acute distress Heart: Regular rate (SR), Normal S1, Normal S2 Abdomen: Soft, No tenderness Extremities: No cyanosis, No edema Skin: No breakdown, No significant lesion Labs LABS Laboratory Tests Test 04/23/17 15:16 04/24/17 04:17 Troponin I Quantitative < 0.017 ng/mL (0.000-0.055) White Blood Count 5.7 x10^3/uL (4.0-11.0) Red Blood Count 4.42 x10^6/uL (4.30-5.70) Hemoglobin 13.7 g/dL (13.0-17.5) Hematocrit 40.5 % (39.0-53.0) Mean Corpuscular Volume 92 fL (79-100) Mean Corpuscular Hemoglobin 31 pg (25-35) Mean Corpuscular Hemoglobin Concent 34 g/dL (31-37) Red Cell Distribution Width 14.6 % (11.5-14.5) Platelet Count 235 x10^3/uL (140-400) Neutrophils (%) (Auto) 56 % (31-73) Lymphocytes (%) (Auto) 33 % (24-48) Monocytes (%) (Auto) 7 % (0-9) Eosinophils (%) (Auto) 3 % (0-3) Basophils (%) (Auto) 1 % (0-3) Neutrophils # (Auto) 3.2 x10^3uL (1.8-7.7) Lymphocytes # (Auto) 1.9 x10^3/uL (1.0-4.8) Monocytes # (Auto) 0.4 x10^3/uL (0.0-1.1) Eosinophils # (Auto) 0.2 x10^3/uL (0.0-0.7) Basophils # (Auto) 0.0 x10^3/uL (0.0-0.2) Sodium Level 141 mmol/L (136-145) Potassium Level 4.8 mmol/L (3.5-5.1) Chloride Level 108 mmol/L (98-107) Carbon Dioxide Level 28 mmol/L (21-32) Anion Gap 5 (6-14) Blood Urea Nitrogen 22 mg/dL (8-26) Creatinine 1.5 mg/dL (0.7-1.3) Estimated GFR (Cockcroft-Gault) 45.9 BUN/Creatinine Ratio 15 (6-20) Glucose Level 124 mg/dL (70-99) Calcium Level 8.4 mg/dL (8.5-10.1) Magnesium Level 2.0 mg/dL (1.8-2.4) Total Bilirubin 0.5 mg/dL (0.2-1.0) Aspartate Amino Transf (AST/SGOT) 43 U/L (15-37) Alanine Aminotransferase (ALT/SGPT) 68 U/L (16-63) Alkaline Phosphatase 73 U/L (46-116) Total Protein 6.2 g/dL (6.4-8.2) Albumin 3.4 g/dL (3.4-5.0) Albumin/Globulin Ratio 1.2 (1.0-1.7) Assessment and Plan Assessmemt and Plan Problems Medical Problems: (1) Chest pain Status: Acute Problems: Comment Review of Relevant I have reviewed the following items abhilash (where applicable) has been applied. Labs Laboratory Tests Test 04/23/17 03:31 04/23/17 08:24 04/23/17 09:50 04/23/17 15:16 White Blood Count 6.4 x10^3/uL (4.0-11.0) Red Blood Count 4.51 x10^6/uL (4.30-5.70) Hemoglobin 14.0 g/dL (13.0-17.5) Hematocrit 41.4 % (39.0-53.0) Mean Corpuscular Volume 92 fL (79-100) Mean Corpuscular Hemoglobin 31 pg (25-35) Mean Corpuscular Hemoglobin Concent 34 g/dL (31-37) Red Cell Distribution Width 14.4 % (11.5-14.5) Platelet Count 250 x10^3/uL (140-400) Neutrophils (%) (Auto) 47 % (31-73) Lymphocytes (%) (Auto) 40 % (24-48) Monocytes (%) (Auto) 10 % (0-9) Eosinophils (%) (Auto) 3 % (0-3) Basophils (%) (Auto) 1 % (0-3) Neutrophils # (Auto) 3.0 x10^3uL (1.8-7.7) Lymphocytes # (Auto) 2.5 x10^3/uL (1.0-4.8) Monocytes # (Auto) 0.6 x10^3/uL (0.0-1.1) Eosinophils # (Auto) 0.2 x10^3/uL (0.0-0.7) Basophils # (Auto) 0.1 x10^3/uL (0.0-0.2) Sodium Level 144 mmol/L (136-145) Potassium Level 4.1 mmol/L (3.5-5.1) Chloride Level 108 mmol/L (98-107) Carbon Dioxide Level 29 mmol/L (21-32) Anion Gap 7 (6-14) Blood Urea Nitrogen 23 mg/dL (8-26) Creatinine 1.6 mg/dL (0.7-1.3) Estimated GFR (Cockcroft-Gault) 42.6 BUN/Creatinine Ratio 14 (6-20) Glucose Level 150 mg/dL (70-99) Calcium Level 8.7 mg/dL (8.5-10.1) Total Bilirubin 0.5 mg/dL (0.2-1.0) Aspartate Amino Transf (AST/SGOT) 45 U/L (15-37) Alanine Aminotransferase (ALT/SGPT) 68 U/L (16-63) Alkaline Phosphatase 76 U/L (46-116) Troponin I Quantitative < 0.017 ng/mL (0.000-0.055) < 0.017 ng/mL (0.000-0.055) < 0.017 ng/mL (0.000-0.055) < 0.017 ng/mL (0.000-0.055) Total Protein 6.5 g/dL (6.4-8.2) Albumin 3.5 g/dL (3.4-5.0) Albumin/Globulin Ratio 1.2 (1.0-1.7) Magnesium Level 2.1 mg/dL (1.8-2.4) Test 04/24/17 04:17 White Blood Count 5.7 x10^3/uL (4.0-11.0) Red Blood Count 4.42 x10^6/uL (4.30-5.70) Hemoglobin 13.7 g/dL (13.0-17.5) Hematocrit 40.5 % (39.0-53.0) Mean Corpuscular Volume 92 fL (79-100) Mean Corpuscular Hemoglobin 31 pg (25-35) Mean Corpuscular Hemoglobin Concent 34 g/dL (31-37) Red Cell Distribution Width 14.6 % (11.5-14.5) Platelet Count 235 x10^3/uL (140-400) Neutrophils (%) (Auto) 56 % (31-73) Lymphocytes (%) (Auto) 33 % (24-48) Monocytes (%) (Auto) 7 % (0-9) Eosinophils (%) (Auto) 3 % (0-3) Basophils (%) (Auto) 1 % (0-3) Neutrophils # (Auto) 3.2 x10^3uL (1.8-7.7) Lymphocytes # (Auto) 1.9 x10^3/uL (1.0-4.8) Monocytes # (Auto) 0.4 x10^3/uL (0.0-1.1) Eosinophils # (Auto) 0.2 x10^3/uL (0.0-0.7) Basophils # (Auto) 0.0 x10^3/uL (0.0-0.2) Sodium Level 141 mmol/L (136-145) Potassium Level 4.8 mmol/L (3.5-5.1) Chloride Level 108 mmol/L (98-107) Carbon Dioxide Level 28 mmol/L (21-32) Anion Gap 5 (6-14) Blood Urea Nitrogen 22 mg/dL (8-26) Creatinine 1.5 mg/dL (0.7-1.3) Estimated GFR (Cockcroft-Gault) 45.9 BUN/Creatinine Ratio 15 (6-20) Glucose Level 124 mg/dL (70-99) Calcium Level 8.4 mg/dL (8.5-10.1) Magnesium Level 2.0 mg/dL (1.8-2.4) Total Bilirubin 0.5 mg/dL (0.2-1.0) Aspartate Amino Transf (AST/SGOT) 43 U/L (15-37) Alanine Aminotransferase (ALT/SGPT) 68 U/L (16-63) Alkaline Phosphatase 73 U/L (46-116) Total Protein 6.2 g/dL (6.4-8.2) Albumin 3.4 g/dL (3.4-5.0) Albumin/Globulin Ratio 1.2 (1.0-1.7) Laboratory Tests Test 04/23/17 15:16 04/24/17 04:17 Troponin I Quantitative < 0.017 ng/mL (0.000-0.055) White Blood Count 5.7 x10^3/uL (4.0-11.0) Red Blood Count 4.42 x10^6/uL (4.30-5.70) Hemoglobin 13.7 g/dL (13.0-17.5) Hematocrit 40.5 % (39.0-53.0) Mean Corpuscular Volume 92 fL (79-100) Mean Corpuscular Hemoglobin 31 pg (25-35) Mean Corpuscular Hemoglobin Concent 34 g/dL (31-37) Red Cell Distribution Width 14.6 % (11.5-14.5) Platelet Count 235 x10^3/uL (140-400) Neutrophils (%) (Auto) 56 % (31-73) Lymphocytes (%) (Auto) 33 % (24-48) Monocytes (%) (Auto) 7 % (0-9) Eosinophils (%) (Auto) 3 % (0-3) Basophils (%) (Auto) 1 % (0-3) Neutrophils # (Auto) 3.2 x10^3uL (1.8-7.7) Lymphocytes # (Auto) 1.9 x10^3/uL (1.0-4.8) Monocytes # (Auto) 0.4 x10^3/uL (0.0-1.1) Eosinophils # (Auto) 0.2 x10^3/uL (0.0-0.7) Basophils # (Auto) 0.0 x10^3/uL (0.0-0.2) Sodium Level 141 mmol/L (136-145) Potassium Level 4.8 mmol/L (3.5-5.1) Chloride Level 108 mmol/L (98-107) Carbon Dioxide Level 28 mmol/L (21-32) Anion Gap 5 (6-14) Blood Urea Nitrogen 22 mg/dL (8-26) Creatinine 1.5 mg/dL (0.7-1.3) Estimated GFR (Cockcroft-Gault) 45.9 BUN/Creatinine Ratio 15 (6-20) Glucose Level 124 mg/dL (70-99) Calcium Level 8.4 mg/dL (8.5-10.1) Magnesium Level 2.0 mg/dL (1.8-2.4) Total Bilirubin 0.5 mg/dL (0.2-1.0) Aspartate Amino Transf (AST/SGOT) 43 U/L (15-37) Alanine Aminotransferase (ALT/SGPT) 68 U/L (16-63) Alkaline Phosphatase 73 U/L (46-116) Total Protein 6.2 g/dL (6.4-8.2) Albumin 3.4 g/dL (3.4-5.0) Albumin/Globulin Ratio 1.2 (1.0-1.7) Medications Current Medications Ondansetron HCl (Zofran) 4 mg PRN Q8HRS PRN IV NAUSEA/VOMITING; Start 04/23/17 at 04:00; Stop 04/24/17 at 03:59; Status DC Acetaminophen (Tylenol) 650 mg PRN Q4HRS PRN PO FEVER; Start 04/23/17 at 04:00 ; Stop 04/24/17 at 03:59; Status DC Nitroglycerin (Nitrostat) 0.4 mg PRN Q5MIN PRN SL CHEST PAIN Last administered on 04/23/17 05:37; Start 04/23/17 at 04:00; Stop 04/24/17 at 03:59; Status DC Nitroglycerin (Nitro-Bid Oint) 1 inch 1X ONCE TP Last administered on 04:11; Start 04/23/17 at 04:00; Stop 04/23/17 at 04:01; Status DC Fentanyl Citrate (Fentanyl 2ml Vial) 50 mcg PRN Q2HR PRN IV PAIN Last administered on 04/23/17 08:44; Start 04/23/17 at 06:00 Aspirin (Gayle Aspirin) 325 mg DAILYWBKFT PO Last administered on 04/24/17 08: 18; Start 04/23/17 at 09:00 Losartan Potassium (Cozaar) 50 mg DAILY PO Last administered on 04/24/17 08:19 ; Start 04/23/17 at 09:00 Metoprolol Succinate (Toprol Xl) 12.5 mg DAILY PO Last administered on 08:19; Start 04/23/17 at 09:00 Prasugrel (Effient) 10 mg DAILYWBKFT PO Last administered on 04/24/17 08:18; Start 04/23/17 at 09:00 Simvastatin (Zocor) 40 mg HS PO Last administered on 04/23/17 20:54; Start at 21:00 Tamsulosin HCl (Flomax) 0.4 mg HS PO Last administered on 04/23/17 20:54; Start 04/23/17 at 21:00 Famotidine (Pepcid) 20 mg DAILY PO Last administered on 04/23/17 08:32; Start 04/23/17 at 09:00; Stop 04/23/17 at 11:56; Status DC Sodium Chloride 1,000 ml @ 100 mls/hr 1X ONCE IV Last administered on 08:45; Start 04/23/17 at 08:30; Stop 04/23/17 at 18:29; Status DC Heparin Sodium/ Sodium Chloride 1,000 ml @ As Directed STK-MED ONCE .ROUTE ; Start 04/23/17 at 09:56; Stop 04/23/17 at 09:57; Status DC Lidocaine HCl 20 ml STK-MED ONCE .ROUTE ; Start 04/23/17 at 09:56; Stop at 09:57; Status DC Iodixanol (Visipaque 320) 100 ml STK-MED ONCE .ROUTE ; Start 04/23/17 at 09:56; Stop 04/23/17 at 09:57; Status DC Fentanyl Citrate (Fentanyl 5ml Vial) 250 mcg STK-MED ONCE .ROUTE ; Start at 10:21; Stop 04/23/17 at 10:22; Status DC Midazolam HCl (Versed) 5 mg STK-MED ONCE .ROUTE ; Start 04/23/17 at 10:21; Stop 04/23/17 at 10:22; Status DC Heparin Sodium/ Sodium Chloride 1,000 unit 1X ONCE IART Last administered on 10:44; Start 04/23/17 at 10:30; Stop 04/23/17 at 10:32; Status DC Midazolam HCl (Versed) 5 mg 1X ONCE IV Last administered on 04/23/17 10:45; Start 04/23/17 at 10:30; Stop 04/23/17 at 10:32; Status DC Fentanyl Citrate (Fentanyl 5ml Vial) 250 mcg 1X ONCE IV Last administered on 10:44; Start 04/23/17 at 10:30; Stop 04/23/17 at 10:32; Status DC Iodixanol (Visipaque 320) 100 ml 1X ONCE IART Last administered on 04/23/17 10:44; Start 04/23/17 at 10:30; Stop 04/23/17 at 10:32; Status DC Lidocaine HCl 20 ml 1X ONCE IJ Last administered on 04/23/17 10:44; Start at 10:30; Stop 04/23/17 at 10:32; Status DC Info (Do NOT chart on this entry -- for MONITORING) 1 each PRN DAILY PRN MC SEE COMMENTS; Start 04/23/17 at 10:45; Stop 04/25/17 at 10:44 Pantoprazole Sodium (Protonix) 40 mg DAILYAC PO Last administered on 04/24/17 08:18; Start 04/24/17 at 07:30 Oxycodone/ Acetaminophen (Percocet 5/325) 1 tab PRN Q4HRS PRN PO PAIN Last administered on 04/24/17 08:18; Start 04/23/17 at 16:15 Sodium Chloride 1,000 ml @ 100 mls/hr 1X ONCE IV Last administered on 16:15; Start 04/23/17 at 16:15; Stop 04/24/17 at 02:14; Status DC Lidocaine (Lidoderm) 1 patch DAILY TD Last administered on 04/24/17 10:13; Start 04/24/17 at 09:30 Acetaminophen (Tylenol) 650 mg 1X ONCE PO Last administered on 04/24/17 10:12 ; Start 04/24/17 at 09:30; Stop 04/24/17 at 09:31; Status DC Active Scripts Active Cozaar (Losartan Potassium) 50 Mg Tablet 50 Mg PO DAILY 30 Days Effient (Prasugrel Hcl) 10 Mg Tablet 10 Mg PO DAILYWBKFT 30 Days Metoprolol Succinate ( Xl ) (Metoprolol Succinate) 25 Mg Tab.er.24h 12.5 Mg PO DAILY 30 Days Reported Marcia Allergy (Fexofenadine Hcl) 180 Mg Tablet 180 Mg PO DAILY Metoprolol Tartrate 25 Mg Tablet 12.5 Mg PO BID NITROGLYCERIN SubLingual (Nitroglycerin) 0.4 Mg Tab.subl 0.4 Mg SL PRN Q5MIN PRN Multi Vitamin Daily (Multivitamin) 1 Each Tablet 1 Each PO DAILY Flomax (Tamsulosin Hcl) 0.4 Mg Cap.er.24h 0.4 Mg PO HS Ultram (Tramadol Hcl) 50 Mg Tablet 50 Mg PO HS Zocor (Simvastatin) 40 Mg Tablet 40 Mg PO HS Zantac (Ranitidine Hcl) 150 Mg Tablet 150 Mg PO BID Aspirin Ec (Aspirin) 325 Mg Tablet.dr 325 Mg PO DAILY Levitra (Vardenafil Hcl) 10 Mg Tablet 10 Mg PO PRN Vitals/I & O Vital Sign - Last 24 Hours 04/23/17 04/23/17 04/23/17 04/23/17 14:00 16:28 19:51 22:28 Temp 97.7 98.1 98.3 97.7 98.1 98.3 Pulse 55 58 61 Resp 20 18 18 B/P (MAP) 16/59 (45) 118/63 (81) 126/65 (85) Pulse Ox 95 95 96 96 O2 Delivery Room Air Room Air Room Air Room Air O2 Flow Rate 2.0 04/24/17 04/24/17 04/24/17 04/24/17 03:01 03:15 07:00 08:18 Temp 97.9 97.4 97.9 97.4 Pulse 68 66 Resp 18 18 B/P (MAP) 146/80 (102) 114/62 (79) Pulse Ox 97 96 96 O2 Delivery Room Air Room Air Room Air Room Air 04/24/17 04/24/17 04/24/17 04/24/17 08:19 08:19 09:20 11:00 Temp 98.0 98.0 Pulse 66 66 73 Resp 20 B/P (MAP) 114/62 114/62 144/80 (101) Pulse Ox 96 96 O2 Delivery Room Air Room Air O2 Flow Rate 2.0 Intake and Output 04/23/17 04/23/17 04/24/17 15:00 23:00 07:00 Intake Total 1220 ml 0 ml Balance 1220 ml 0 ml CE GAMBOA MD Apr 24, 2017 14:00
--- NOTE | 2017-04-24 14:03 | PDOC3 ---
Discharge Summary Visit Information Date of Admission: Apr 23, 2017 Date of Discharge: Apr 24, 2017 Admitting Diagnosis: angina Final Diagnosis stable angina, recently unstable, now s/p cath CAD s/.p CABG X4 htn lipids Problems Medical Problems: (1) Chest pain Status: Acute Brief Hospital Course Allergies Allergies Coded Allergies Type Severity Reaction Last Updated Verified codeine Allergy Intermediate Anxiety 03/20/14 Yes morphine Allergy Intermediate anxiety 04/14/17 Yes Vital Signs Vital Signs Date Time Temp Pulse Resp B/P (MAP) Pulse Ox O2 Delivery O2 Flow Rate FiO2 04/24/17 11:00 98.0 73 20 144/80 (101) 96 Room Air 98.0 04/24/17 09:20 2.0 Lab Results Laboratory Tests Test 04/23/17 03:31 04/23/17 08:24 04/23/17 09:50 04/23/17 15:16 White Blood Count 6.4 x10^3/uL (4.0-11.0) Red Blood Count 4.51 x10^6/uL (4.30-5.70) Hemoglobin 14.0 g/dL (13.0-17.5) Hematocrit 41.4 % (39.0-53.0) Mean Corpuscular Volume 92 fL (79-100) Mean Corpuscular Hemoglobin 31 pg (25-35) Mean Corpuscular Hemoglobin Concent 34 g/dL (31-37) Red Cell Distribution Width 14.4 % (11.5-14.5) Platelet Count 250 x10^3/uL (140-400) Neutrophils (%) (Auto) 47 % (31-73) Lymphocytes (%) (Auto) 40 % (24-48) Monocytes (%) (Auto) 10 % (0-9) Eosinophils (%) (Auto) 3 % (0-3) Basophils (%) (Auto) 1 % (0-3) Neutrophils # (Auto) 3.0 x10^3uL (1.8-7.7) Lymphocytes # (Auto) 2.5 x10^3/uL (1.0-4.8) Monocytes # (Auto) 0.6 x10^3/uL (0.0-1.1) Eosinophils # (Auto) 0.2 x10^3/uL (0.0-0.7) Basophils # (Auto) 0.1 x10^3/uL (0.0-0.2) Sodium Level 144 mmol/L (136-145) Potassium Level 4.1 mmol/L (3.5-5.1) Chloride Level 108 mmol/L (98-107) Carbon Dioxide Level 29 mmol/L (21-32) Anion Gap 7 (6-14) Blood Urea Nitrogen 23 mg/dL (8-26) Creatinine 1.6 mg/dL (0.7-1.3) Estimated GFR (Cockcroft-Gault) 42.6 BUN/Creatinine Ratio 14 (6-20) Glucose Level 150 mg/dL (70-99) Calcium Level 8.7 mg/dL (8.5-10.1) Total Bilirubin 0.5 mg/dL (0.2-1.0) Aspartate Amino Transf (AST/SGOT) 45 U/L (15-37) Alanine Aminotransferase (ALT/SGPT) 68 U/L (16-63) Alkaline Phosphatase 76 U/L (46-116) Troponin I Quantitative < 0.017 ng/mL (0.000-0.055) < 0.017 ng/mL (0.000-0.055) < 0.017 ng/mL (0.000-0.055) < 0.017 ng/mL (0.000-0.055) Total Protein 6.5 g/dL (6.4-8.2) Albumin 3.5 g/dL (3.4-5.0) Albumin/Globulin Ratio 1.2 (1.0-1.7) Magnesium Level 2.1 mg/dL (1.8-2.4) Test 04/24/17 04:17 White Blood Count 5.7 x10^3/uL (4.0-11.0) Red Blood Count 4.42 x10^6/uL (4.30-5.70) Hemoglobin 13.7 g/dL (13.0-17.5) Hematocrit 40.5 % (39.0-53.0) Mean Corpuscular Volume 92 fL (79-100) Mean Corpuscular Hemoglobin 31 pg (25-35) Mean Corpuscular Hemoglobin Concent 34 g/dL (31-37) Red Cell Distribution Width 14.6 % (11.5-14.5) Platelet Count 235 x10^3/uL (140-400) Neutrophils (%) (Auto) 56 % (31-73) Lymphocytes (%) (Auto) 33 % (24-48) Monocytes (%) (Auto) 7 % (0-9) Eosinophils (%) (Auto) 3 % (0-3) Basophils (%) (Auto) 1 % (0-3) Neutrophils # (Auto) 3.2 x10^3uL (1.8-7.7) Lymphocytes # (Auto) 1.9 x10^3/uL (1.0-4.8) Monocytes # (Auto) 0.4 x10^3/uL (0.0-1.1) Eosinophils # (Auto) 0.2 x10^3/uL (0.0-0.7) Basophils # (Auto) 0.0 x10^3/uL (0.0-0.2) Sodium Level 141 mmol/L (136-145) Potassium Level 4.8 mmol/L (3.5-5.1) Chloride Level 108 mmol/L (98-107) Carbon Dioxide Level 28 mmol/L (21-32) Anion Gap 5 (6-14) Blood Urea Nitrogen 22 mg/dL (8-26) Creatinine 1.5 mg/dL (0.7-1.3) Estimated GFR (Cockcroft-Gault) 45.9 BUN/Creatinine Ratio 15 (6-20) Glucose Level 124 mg/dL (70-99) Calcium Level 8.4 mg/dL (8.5-10.1) Magnesium Level 2.0 mg/dL (1.8-2.4) Total Bilirubin 0.5 mg/dL (0.2-1.0) Aspartate Amino Transf (AST/SGOT) 43 U/L (15-37) Alanine Aminotransferase (ALT/SGPT) 68 U/L (16-63) Alkaline Phosphatase 73 U/L (46-116) Total Protein 6.2 g/dL (6.4-8.2) Albumin 3.4 g/dL (3.4-5.0) Albumin/Globulin Ratio 1.2 (1.0-1.7) Laboratory Tests Test 04/23/17 15:16 04/24/17 04:17 Troponin I Quantitative < 0.017 ng/mL (0.000-0.055) White Blood Count 5.7 x10^3/uL (4.0-11.0) Red Blood Count 4.42 x10^6/uL (4.30-5.70) Hemoglobin 13.7 g/dL (13.0-17.5) Hematocrit 40.5 % (39.0-53.0) Mean Corpuscular Volume 92 fL (79-100) Mean Corpuscular Hemoglobin 31 pg (25-35) Mean Corpuscular Hemoglobin Concent 34 g/dL (31-37) Red Cell Distribution Width 14.6 % (11.5-14.5) Platelet Count 235 x10^3/uL (140-400) Neutrophils (%) (Auto) 56 % (31-73) Lymphocytes (%) (Auto) 33 % (24-48) Monocytes (%) (Auto) 7 % (0-9) Eosinophils (%) (Auto) 3 % (0-3) Basophils (%) (Auto) 1 % (0-3) Neutrophils # (Auto) 3.2 x10^3uL (1.8-7.7) Lymphocytes # (Auto) 1.9 x10^3/uL (1.0-4.8) Monocytes # (Auto) 0.4 x10^3/uL (0.0-1.1) Eosinophils # (Auto) 0.2 x10^3/uL (0.0-0.7) Basophils # (Auto) 0.0 x10^3/uL (0.0-0.2) Sodium Level 141 mmol/L (136-145) Potassium Level 4.8 mmol/L (3.5-5.1) Chloride Level 108 mmol/L (98-107) Carbon Dioxide Level 28 mmol/L (21-32) Anion Gap 5 (6-14) Blood Urea Nitrogen 22 mg/dL (8-26) Creatinine 1.5 mg/dL (0.7-1.3) Estimated GFR (Cockcroft-Gault) 45.9 BUN/Creatinine Ratio 15 (6-20) Glucose Level 124 mg/dL (70-99) Calcium Level 8.4 mg/dL (8.5-10.1) Magnesium Level 2.0 mg/dL (1.8-2.4) Total Bilirubin 0.5 mg/dL (0.2-1.0) Aspartate Amino Transf (AST/SGOT) 43 U/L (15-37) Alanine Aminotransferase (ALT/SGPT) 68 U/L (16-63) Alkaline Phosphatase 73 U/L (46-116) Total Protein 6.2 g/dL (6.4-8.2) Albumin 3.4 g/dL (3.4-5.0) Albumin/Globulin Ratio 1.2 (1.0-1.7) Brief Hospital Course Mr. Killian is a 72 old admit for return of chest pain 2 weeks s/p cath for unstable angina for same recent PCI/COLETTE. LHC done and appers patient Continue with DAPT (ASA/effient) and PPI cont cardiac rehab f/u in clinic 6.29 Discharge Information Condition at Discharge: Improved Follow Up: Weeks Disposition/Orders: D/C to Home Scheduled Aspirin (Aspirin Ec), 325 MG PO DAILY, (Reported) Fexofenadine Hcl (Marcia Allergy), 180 MG PO DAILY, (Reported) Losartan Potassium (Cozaar), 50 MG PO DAILY Metoprolol Succinate (Metoprolol Succinate ( Xl )), 12.5 MG PO DAILY Metoprolol Tartrate (Metoprolol Tartrate), 12.5 MG PO BID, (Reported) Multivitamin (Multi Vitamin Daily), 1 EACH PO DAILY, (Reported) Prasugrel Hcl (Effient), 10 MG PO DAILYWBKFT Ranitidine Hcl (Zantac), 150 MG PO BID, (Reported) Simvastatin (Zocor), 40 MG PO HS, (Reported) Tamsulosin Hcl (Flomax), 0.4 MG PO HS, (Reported) Tramadol Hcl (Ultram), 50 MG PO HS, (Reported) Vardenafil Hcl (Levitra), 10 MG PO prn, (Reported) Scheduled PRN Nitroglycerin (NITROGLYCERIN SubLingual), 0.4 MG SL PRN Q5MIN PRN for CHEST PAIN , (Reported) Discontinued Medications Celecoxib (Celebrex), 200 MG PO DAILY, (Reported) Metoprolol Succinate (Toprol Xl), 12.5 MG PO DAILYWSUP, (Reported) Patient Instructions Patient Instructions time > 30mn CE GAMBOA MD Apr 24, 2017 14:03
== END 2017-04-24 15:14 | disposition home or self-care (01) | DRG 287 ==
LOC: ER 03:19 → 6 SOUTH 04:00
PROVIDERS: ADMIT Internal Medicine; ATTEND Internal Medicine
PROC: B2111ZZ Fluoroscopy of Multiple Coronary Arteries using Low Osmolar Contrast (ICD-10-PCS; principal; 2017-04-23)
DX: I25.118 Atherosclerotic heart disease of native coronary artery with other forms of angina pectoris (principal); E78.5 Hyperlipidemia, unspecified; E78.00 Pure hypercholesterolemia, unspecified; I12.9 Hypertensive chronic kidney disease with stage 1 through stage 4 chronic kidney disease, or unspecified chronic kidney disease; N18.3 Chronic kidney disease, stage 3 (moderate); K21.9 Gastro-esophageal reflux disease without esophagitis; Z96.651 Presence of right artificial knee joint; G56.00 Carpal tunnel syndrome, unspecified upper limb; N40.1 Benign prostatic hyperplasia with lower urinary tract symptoms; E11.22 Type 2 diabetes mellitus with diabetic chronic kidney disease; K59.00 Constipation, unspecified; M19.90 Unspecified osteoarthritis, unspecified site; R35.0 Frequency of micturition; N52.9 Male erectile dysfunction, unspecified; Z90.49 Acquired absence of other specified parts of digestive tract; Z95.1 Presence of aortocoronary bypass graft; Z98.61 Coronary angioplasty status; Z98.49 Cataract extraction status, unspecified eye; Z88.5 Allergy status to narcotic agent; Z79.899 Other long term (current) drug therapy; Z90.89 Acquired absence of other organs; Z80.9 Family history of malignant neoplasm, unspecified
CPT/HCPCS: 36415; 71010; 80053; 83735; 84484; 85027; 93005; 93454; C1769; C1771; C1892; G0269; J2250; J3010; J7030; 99285-25

== ENCOUNTER 2017-08-05 08:42 | Observation (INO) | payer MEDICARE, OTHER ==
[~2017-08-05] VITALS: Ht 180.3 cm; Wt 106.7 kg
[~2017-08-05 08:42] MED LIST changes: +FEXO180T81 PO; +METO-239 PO; -METO25TA9 PO
--- NOTE | 2017-08-05 08:55 | PHYS DOC ---
Past Medical History Past Medical History: GERD, High Cholesterol, Hypertension, Other Additional Past Medical Histor: ED, urinary frequency Past Surgical History: Appendectomy, Coronary Bypass Surgery, Other Additional Past Surgical Histo: ortho, carpal tunnel, bilat ankles, R. elbow, disk replaced in neck Alcohol Use: None Drug Use: None Adult General Chief Complaint Chief Complaint: DIZZY/LIGHT HEADED HPI HPI Patient is a 72 year old male with a history of quadruple bypass 6 years ago and a recent stent placement in April presents to the ED complaining of dizziness and shortness of breath x 1 hour ago. States he was at the cardiac rehab on the treadmill and became dizzy and short of breath after getting off the treadmill. States he always has some shortness of breath. Denies chest pain , weakness, n/v, abdominal pain, headache, palpitations, syncope or vision changes. Review of Systems Review of Systems Constitutional: Denies fever or chills [] Eyes: Denies change in visual acuity, redness, or eye pain [] HENT: Denies nasal congestion or sore throat [] Respiratory: Denies cough. Complains of shortness of breath [] Cardiovascular: No additional information not addressed in HPI [] GI: Denies abdominal pain, nausea, vomiting, bloody stools or diarrhea [] : Denies dysuria or hematuria [] Musculoskeletal: Denies back pain or joint pain [] Integument: Denies rash or skin lesions [] Neurologic: Denies headache, focal weakness or sensory changes. Complains of dizziness. [] Endocrine: Denies polyuria or polydipsia [] Current Medications Current Medications Current Medications Medications (Trade) Dose Ordered Sig/[facility] Start Time Stop Time Status Last Admin Dose Admin Aspirin (Gayle Aspirin) 325 mg 1X ONCE 08/05/17 09:00 08/05/17 09:01 DC 08/05/17 09:19 325 MG Allergies Allergies Allergies Coded Allergies Type Severity Reaction Last Updated Verified codeine Allergy Intermediate Anxiety 03/20/14 Yes morphine Allergy Intermediate anxiety 04/14/17 Yes Physical Exam Physical Exam Constitutional: Well developed, well nourished, no acute distress, non-toxic appearance. [] HENT: Normocephalic, atraumatic, bilateral external ears normal, oropharynx moist, no oral exudates, nose normal. [] Eyes: PERRLA, EOMI, conjunctiva normal, no discharge. [] Neck: Normal range of motion, no tenderness, supple, no stridor. [] Cardiovascular:Heart rate regular rhythm, no murmur [] Lungs & Thorax: Bilateral breath sounds clear to auscultation [] Abdomen: Bowel sounds normal, soft, no tenderness, no masses, no pulsatile masses. [] Skin: Warm, dry, no erythema, no rash. [] Back: No tenderness, no CVA tenderness. [] Extremities: No tenderness, no cyanosis, no clubbing, ROM intact, no edema. [] Neurologic: Alert and oriented X 3, normal motor function, normal sensory function, no focal deficits noted. [] Psychologic: Affect normal, judgement normal, mood normal. [] Current Patient Data Vital Signs Vital Signs Date Time Temp Pulse Resp B/P (MAP) Pulse Ox O2 Delivery O2 Flow Rate FiO2 08/05/17 09:52 58 12 158/69 (98) 95 Room Air 08/05/17 09:05 97.7 97.7 Lab Values Laboratory Tests Test 08/05/17 09:00 White Blood Count 5.4 x10^3/uL (4.0-11.0) Red Blood Count 4.79 x10^6/uL (4.30-5.70) Hemoglobin 14.8 g/dL (13.0-17.5) Hematocrit 43.1 % (39.0-53.0) Mean Corpuscular Volume 90 fL (79-100) Mean Corpuscular Hemoglobin 31 pg (25-35) Mean Corpuscular Hemoglobin Concent 34 g/dL (31-37) Red Cell Distribution Width 13.9 % (11.5-14.5) Platelet Count 221 x10^3/uL (140-400) Neutrophils (%) (Auto) 52 % (31-73) Lymphocytes (%) (Auto) 35 % (24-48) Monocytes (%) (Auto) 8 % (0-9) Eosinophils (%) (Auto) 4 % (0-3) H Basophils (%) (Auto) 1 % (0-3) Neutrophils # (Auto) 2.8 x10^3uL (1.8-7.7) Lymphocytes # (Auto) 1.9 x10^3/uL (1.0-4.8) Monocytes # (Auto) 0.4 x10^3/uL (0.0-1.1) Eosinophils # (Auto) 0.2 x10^3/uL (0.0-0.7) Basophils # (Auto) 0.1 x10^3/uL (0.0-0.2) Prothrombin Time 12.9 SEC (11.7-14.0) Prothrombin Time INR 1.0 (0.8-1.1) Sodium Level 140 mmol/L (136-145) Potassium Level 4.4 mmol/L (3.5-5.1) Chloride Level 106 mmol/L (98-107) Carbon Dioxide Level 24 mmol/L (21-32) Anion Gap 10 (6-14) Blood Urea Nitrogen 24 mg/dL (8-26) Creatinine 1.4 mg/dL (0.7-1.3) H Estimated GFR (Cockcroft-Gault) 49.7 Glucose Level 143 mg/dL (70-99) H Calcium Level 8.6 mg/dL (8.5-10.1) Total Bilirubin 0.6 mg/dL (0.2-1.0) Direct Bilirubin 0.1 mg/dL (0.0-0.2) Aspartate Amino Transferase (AST) 46 U/L (15-37) H Alanine Aminotransferase (ALT) 59 U/L (16-63) Alkaline Phosphatase 79 U/L (46-116) Creatine Kinase 162 U/L (39-308) Creatine Kinase MB (Mass) 1.7 ng/mL (0.0-3.6) Creatine Kinase MB Relative Index 1.0 % (0-4) Troponin I Quantitative < 0.017 ng/mL (0.000-0.055) GD-Yay-Q-Type Natriuretic Peptide 48 pg/mL (0-124) Total Protein 6.6 g/dL (6.4-8.2) Albumin 3.7 g/dL (3.4-5.0) Triglycerides Level 208 mg/dL (0-150) H Cholesterol Level 113 mg/dL (0-200) LDL Cholesterol, Calculated 40 mg/dL (0-100) VLDL Cholesterol, Calculated 42 mg/dL (0-40) H Non-HDL Cholesterol Calculated 82 mg/dL (0-129) HDL Cholesterol 31 mg/dL (40-60) L Cholesterol/HDL Ratio 3.6 Lipase 93 U/L (73-393) Laboratory Tests 08/05/17 09:00 Laboratory Tests 08/05/17 09:00 EKG EKG EKG shows normal sinus rhythm at 58 bpm, left axis deviation. No STEMI. Radiology/Procedures Radiology/Procedures PROCEDURE: PORTABLE CHEST 1V EXAM: Chest, single view. HISTORY: Dizziness. COMPARISON: 04/23/2017. FINDINGS: A frontal view of the chest is obtained. There is no infiltrate, effusion or pneumothorax. The heart is normal in size. There are median sternotomy changes. There is cervical spinal fusion instrumentation. IMPRESSION: No acute pulmonary finding. [] Course & Med Decision Making Course & Med Decision Making Pertinent Labs and Imaging studies reviewed. (See chart for details) []Discussed case with hospitalist, Dr. Humphries and the patients dry house attendant group ([facility]) whom completed his stent in April. Dr. Humphries, Agrees to admission further management patient. Patient stable for admission. Dragon Disclaimer Dragon Disclaimer This electronic medical record was generated, in whole or in part, using a voice recognition dictation system. Departure Departure Impression: Primary Impression: Dizziness Additional Impression: SHORTNESS OF BREATH Admitting Physician: Other (Yandel) Condition: STABLE Referrals: UNKNOWN PCP NAME (PCP) Problem Qualifiers STEPHANIE LOAIZA Aug 05, 2017 08:55
--- NOTE | 2017-08-05 08:56 | EKG ---
[facility] [address] [place] [address] Test Date: 2017-08-05 Test Time: 08:47:02 Pat Name: EDWIN JAY Department: Room: Gender: M Department Clinician: : 1945 Requested By: STEPHANIE LOAIZA Order Number: [id number] Reading MD: Measurements Intervals Viper Rate: 58 P: 26 MS: 208 QRS: -38 QRSD: 114 T: 17 QT: 424 QTc: 420 Interpretive Statements SINUS RHYTHM ABNORMAL LEFT AXIS DEVIATION LEFT ANTERIOR FASCICULAR BLOCK QRS(T) CONTOUR ABNORMALITY CONSISTENT WITH ANTEROSEPTAL INFARCT PROBABLY OLD RI6.01 Unconfirmed report No previous ECG available for comparison
[2017-08-05] MEDS ORDERED: ASPIRIN 325 MG TABLET PO ONE (09:00)
[2017-08-05 09:15] LABS: BASO # 0.1 x10^3/uL (0.0-0.2); BASO % 1 % (0-3); EOS % 4 % (0-3); HEMATOCRIT 43.1 % (39.0-53.0); HEMOGLOBIN 14.8 g/dL (13.0-17.5); LYMPH # 1.9 x10^3/uL (1.0-4.8); LYMPH % 35 % (24-48); MEAN CORPUSCULAR HEMOGLOBIN 31 pg (25-35); MEAN CORPUSCULAR HGB CONC 34 g/dL (31-37); MEAN CORPUSCULAR VOLUME 90 fL (79-100); MONO % 8 % (0-9); NEUT % 52 % (31-73); PLATELET COUNT 221 x10^3/uL (140-400); RED BLOOD COUNT 4.79 x10^6/uL (4.30-5.70); RED CELL DISTRIBUTION WIDTH 13.9 % (11.5-14.5); WHITE BLOOD COUNT 5.4 x10^3/uL (4.0-11.0)
[2017-08-05 09:27] LABS: CALCIUM 8.6 mg/dL (8.5-10.1); CREATININE 1.4 mg/dL (0.7-1.3); GFR 49.7; POTASSIUM 4.4 mmol/L (3.5-5.1)
--- NOTE | 2017-08-05 09:27 | RAD ---
EXAM: Chest, single view. HISTORY: Dizziness. COMPARISON: 04/23/2017. FINDINGS: A frontal view of the chest is obtained. There is no infiltrate, effusion or pneumothorax. The heart is normal in size. There are median sternotomy changes. There is cervical spinal fusion instrumentation. IMPRESSION: No acute pulmonary finding.
[2017-08-05 09:36] LABS: ALBUMIN 3.7 g/dL (3.4-5.0); DIRECT BILIRUBIN 0.1 mg/dL (0.0-0.2); TOTAL BILIRUBIN 0.6 mg/dL (0.2-1.0); TOTAL PROTEIN 6.6 g/dL (6.4-8.2)
[2017-08-05 09:40] LABS: CKMB MASS 1.7 ng/mL (0.0-3.6)
[2017-08-05 09:50] LABS: PROTHROMBIN TIME PATIENT 12.9 SEC (11.7-14.0)
[2017-08-05] MEDS ORDERED: CELE200C PO (12:50)
[2017-08-05] MEDS ORDERED: CLOP75TA PO (12:51)
--- NOTE | 2017-08-05 14:09 | PDOC2 ---
CARDIAC CONSULT DATE OF CONSULT Date of Consult DATE: 08/05/17 TIME: 13:54 REASON FOR CONSULT Reason for Consult: soa REFERRING PHYSICIAN Referring Physician: Adryan SOURCE Source: Chart review, Patient HISTORY OF PRESENT ILLNESS HISTORY OF PRESENT ILLNESS This is a pleasant 72 yo male admitted for complains of dizziness. Pt has had CABG and recently had PCI and has been doing well. He has been attending cardiac rehab and today his time for the treadmill was increased to 12 minutes. This was stopped at that time because he was feeling a little lightheaded. Denies any SOA, CP, palpitations. He has been compliant with his medications including his DAPT. He was mildy SOA after the treadmill and that was because he was exercising. There has been no recurrence of this and has not had any dizzy spells at home. Reports adequate PO hydration. No recent falls or injury. PAST MEDICAL HISTORY Past Medical History Cardiovascular: CAD (with CABG X 4 in 2010 at [facility] to LAD; sequential SVG to Diagonal and intermediate ramus; SVG to PDA), HTN, Hyperlipidemia, Other ( RGSV insufficiency - asymptomatic) Pulmonary: No pertinent hx CENTRAL NERVOUS SYSTEM: Carpal Tunnel Syndrome (right hand with release surgery ), Vertigo GI: Constipation, GERD Heme/Onc: No pertinent hx Hepatobiliary: No pertinent hx Psych: No pertinent hx Musculoskeletal: Osteoarthritis (with DJD) Infectious disease: No pertinent hx ENT: No pertinent hx, Allergic Rhinitis Renal/: Benign prostatic enlarg., Other (erectile dysfunction ) Endocrine: No pertinent hx Dermatology: Basal cell PAST SURGICAL HISTORY Past Surgical History Appendectomy, CABG (2009), Cataract Removal (bilateral ), Hernia Repair, Total knee replacement (right), Tonsillectomy, Other (bilateral ankle surgery with hardware X 3; right elbow bone spur; anterior cervical fusion). PCI/COLETTE to LAD/ LM 04/16/2017 FAMILY HISTORY Family History: Cancer SOCIAL HISTORY Social History Smoke: Quit (1977) ALCOHOL: none Drugs: None Lives: with Family CURRENT MEDICATIONS CURRENT MEDICATIONS Current Medications Medications (Trade) Dose Ordered Sig/Mona Route PRN Reason Start Time Stop Time Status Last Admin Dose Admin Aspirin (Gayle Aspirin) 325 mg 1X ONCE PO 08/05/17 09:00 08/05/17 09:01 DC 08/05/17 09:19 ALLERGIES ALLERGIES: Coded Allergies: codeine (Verified Allergy, Intermediate, Anxiety, 03/20/14) morphine (Verified Allergy, Intermediate, anxiety, 04/14/17) ROS Review of System 14 point ROS evaluated with pertinent positives noted per HPI PHYSICAL EXAM General: Alert, Oriented X3, Cooperative, No acute distress HEENT: Atraumatic, Mucous membr. moist/pink Lungs: Clear to auscultation, Normal air movement Heart: Regular rate (SR), Normal S1, Normal S2, No murmurs Abdomen: Soft, No tenderness Extremities: No cyanosis, No edema Skin: No breakdown, No significant lesion Neuro: Normal speech, Sensation intact Psych/Mental Status: Mental status NL, Mood NL MUSCULOSKELETAL: Osteoarthritic changes both hands VITALS VITALS Vital Signs Date Time Temp Pulse Resp B/P (MAP) Pulse Ox O2 Delivery O2 Flow Rate FiO2 08/05/17 11:22 56 14 140/68 (92) 95 Room Air 08/05/17 09:05 97.7 97.7 LABS Lab: Laboratory Tests Test 08/05/17 09:00 White Blood Count 5.4 x10^3/uL (4.0-11.0) Red Blood Count 4.79 x10^6/uL (4.30-5.70) Hemoglobin 14.8 g/dL (13.0-17.5) Hematocrit 43.1 % (39.0-53.0) Mean Corpuscular Volume 90 fL (79-100) Mean Corpuscular Hemoglobin 31 pg (25-35) Mean Corpuscular Hemoglobin Concent 34 g/dL (31-37) Red Cell Distribution Width 13.9 % (11.5-14.5) Platelet Count 221 x10^3/uL (140-400) Neutrophils (%) (Auto) 52 % (31-73) Lymphocytes (%) (Auto) 35 % (24-48) Monocytes (%) (Auto) 8 % (0-9) Eosinophils (%) (Auto) 4 % (0-3) Basophils (%) (Auto) 1 % (0-3) Neutrophils # (Auto) 2.8 x10^3uL (1.8-7.7) Lymphocytes # (Auto) 1.9 x10^3/uL (1.0-4.8) Monocytes # (Auto) 0.4 x10^3/uL (0.0-1.1) Eosinophils # (Auto) 0.2 x10^3/uL (0.0-0.7) Basophils # (Auto) 0.1 x10^3/uL (0.0-0.2) Prothrombin Time 12.9 SEC (11.7-14.0) Prothromb Time International Ratio 1.0 (0.8-1.1) Sodium Level 140 mmol/L (136-145) Potassium Level 4.4 mmol/L (3.5-5.1) Chloride Level 106 mmol/L (98-107) Carbon Dioxide Level 24 mmol/L (21-32) Anion Gap 10 (6-14) Blood Urea Nitrogen 24 mg/dL (8-26) Creatinine 1.4 mg/dL (0.7-1.3) Estimated GFR (Cockcroft-Gault) 49.7 Glucose Level 143 mg/dL (70-99) Calcium Level 8.6 mg/dL (8.5-10.1) Total Bilirubin 0.6 mg/dL (0.2-1.0) Direct Bilirubin 0.1 mg/dL (0.0-0.2) Aspartate Amino Transf (AST/SGOT) 46 U/L (15-37) Alanine Aminotransferase (ALT/SGPT) 59 U/L (16-63) Alkaline Phosphatase 79 U/L (46-116) Creatine Kinase 162 U/L (39-308) Creatine Kinase MB (Mass) 1.7 ng/mL (0.0-3.6) Creatine Kinase MB Relative Index 1.0 % (0-4) Troponin I Quantitative < 0.017 ng/mL (0.000-0.055) Total Protein 6.6 g/dL (6.4-8.2) Albumin 3.7 g/dL (3.4-5.0) Lipase 93 U/L (73-393) ECHOCARDIOGRAM ECHOCARDIOGRAM <Conclusion> Left ventricle systolic function is low normal. The Ejection Fraction is 50% Septal motion consistent with post-operative state. DATE: 04/14/17 1615 HEART CATH HEART CATH CORONARY ANGIOGRAPHY: LM is a large caliber vessel a patent stent in the mid to distal segment extending into the proximal LAD. Conclusion 1. Widely patent LM/LAD stent. Recommendations Aggressive Medical Therapy DATE: 04/23/17 1311 Conclusion 1. Successful rotational atherectomy, PTCA and PCI of the LAD and LM with implantation of a Xience 2.75/15 COLETTE, post-dilated with a 3.0 mm balloon. 2. Severe diffuse diabetic arteriosclerosis with negative remodeling. Recommendations ASA 81mg daily Prasugrel 10mg daily. High dose statin therapy Referral to cardiac rehab. DATE: 04/16/17 0801 Conclusion 1. Normal left-sided filling pressures. 2. Severe three-vessel coronary artery disease with ostial LAD and distal left main involvement. 3. 3 of 4 bypass grafts patent with occlusion of the PATRICIO to LAD Recommendations Consider high risk rotational atherectomy and PCI of the distal left main and ostial LAD for symptomatically coronary artery disease. Obtain routine echocardiogram. DATE: 04/14/17 1648 ASSESSMENT/PLAN ASSESSMENT/PLAN 1. Dizziness: Initial troponin normal with EKG SR without acute changes. Suspect vasovagal episode. 2. Sinus bradycardia: HR 50s otherwise 60s mainly 2. CAD: S/P recent PCI/COLETTE with rotational atherectomy to LAD/LM on 04/16/2017. Stable Past CABG x4, grafts noted from previous [facility] as above. 3. HTN: controlled 4. HLP 5. CKD3 Recommendations 1. Continue with DAPT 2. PPI and secondary prevention measures 3. Orthostatic readings. 4. Monitor rhythm overnight 5. Anticipate DC tomorrow and will initiate outpt event monitoring. Problems: STORMY WALTER APRN Aug 05, 2017 14:08
[2017-08-05 15:11] LABS: CHOLESTEROL/HDL RATIO 3.6
[2017-08-05] MEDS ORDERED: OMEG1CAP27 PO (16:52)
[2017-08-05] MEDS ORDERED: LOSA25TA4 PO (16:53)
[2017-08-05] MEDS ORDERED: NITROGLYCERIN SUBLINGUAL 0.4 MG BOTTLE OF 25. SL PRN (17:15)
--- NOTE | 2017-08-05 19:46 | HP ---
ADMIT DATE: 08/05/2017 CHIEF COMPLAINT: Lightheadedness, presyncope. HISTORY OF PRESENT ILLNESS: The patient is a 72-year-old gentleman with significant CAD, status post bypass 6 years ago and a recent stent placement in April of this year. He actually was in cardiac rehabilitation on the treadmill when he started feeling dizzy, lightheaded and short of breath. He stepped off the machine and was guided into a chair. Despite receiving water, his symptoms did not improve and he was brought to the Emergency Room. He specifically denies any chest pain, any abdominal pain, palpitations, nausea, sweating or headaches or vision changes. In the Emergency Room, his vital signs were actually found stable. His symptoms had resolved. He is now admitted for further monitoring. PAST MEDICAL HISTORY: CAD status post CABG with 4-vessel disease in 2010. Stents in 04/2017, hypertension, hyperlipidemia, GERD, BPH, osteoarthritis with DJD status post carpal tunnel release. FAMILY HISTORY: Positive for cancer in both parents. SOCIAL HISTORY: He is , living with his , quit smoking in 1977. Denies any alcohol or drugs. ALLERGIES: CODEINE and MORPHINE. MEDICATIONS: MAR reconciled with home medications. REVIEW OF SYSTEMS: The patient is currently completely asymptomatic. He relates that he chronically is very fatigued. This has been going on for weeks if not months. He denies any focal symptoms, however. PHYSICAL EXAMINATION: VITAL SIGNS: From today show a blood pressure of 136/68, heart rate of 60, respiratory rate at 14. He is afebrile. GENERAL: This is a 72-year-old well-nourished gentleman, alert and oriented, in no acute distress, very pleasant. HEENT: Shows no scleral icterus. Oral mucosa is pink and moist. NECK: Supple, without any lymphadenopathy or JVD. LUNGS: Clear bilaterally. HEART: Regular rate and rhythm. ABDOMEN: Has positive bowel sounds, soft, nontender. EXTREMITIES: Show no edema. SKIN: Warm, soft and dry without any rash. LABORATORY DATA: CBC with a WBC of 5.4, hemoglobin 14.8, platelets of 221. Chemistries with a BUN and creatinine of 24 and 1.4, which is essentially his baseline. Electrolytes within normal limits. LFTs with minimally elevated ALT, also chronic. RADIOGRAPHIC IMAGING: Chest x-ray from this morning shows no acute cardiopulmonary finding. ASSESSMENT AND PLAN: The patient is a 72-year-old gentleman with presyncopal symptoms while at cardiac rehabilitation. This may very well be vasovagal, but nevertheless and especially given his recent history, he will be admitted for further rule out. Labs in the ER were negative for any events, but we will check serial troponins and have him on tele. His wood flooring specialist, Dr. Nagy will be notified. We will await further input from Cardiology standpoint. In the meantime, we will continue his home medications including aspirin and Plavix. He is also on a beta divya and Zocor. Benign prostatic hypertrophy and gastroesophageal reflux disease medications will be continued as well. ENMA DALY MD DR: UR/nts JOB#: [id number] / [id number] SAVANA
[2017-08-05 19:52] VITALS: BP 135/68
[2017-08-05] MEDS ORDERED: SIMVASTATIN 40 MG TABLET. PO SCH (21:00)
[2017-08-05] MEDS ORDERED: TAMSULOSIN 0.4 MG CAP.ER.24H. PO SCH (21:00)
[2017-08-05] MEDS: FAMOTIDINE 20 MG TABLET. PO SCH (21:35)
[2017-08-05 22:24] VITALS: BP 129/64
[2017-08-05 22:25] VITALS: BP 147/74
[2017-08-05 22:26] VITALS: BP 132/72
[2017-08-06 03:21] VITALS: BP 142/78
[2017-08-06 07:00] VITALS: BP 154/66
[2017-08-06] MEDS ORDERED: CETIRIZINE HCL 10 MG TABLET. PO SCH (09:00)
[2017-08-06] MEDS ORDERED: ASPIRIN ENTERIC COATED 325 MG TABLET.DR. PO SCH (09:00)
[2017-08-06] MEDS ORDERED: LOSARTAN POTASSIUM 25 MG TABLET. PO SCH (09:00)
[2017-08-06] MEDS ORDERED: METOPROLOL SUCC 24HR ER 25 MG TAB.ER.24H. PO SCH (09:00)
[2017-08-06] MEDS ORDERED: CLOPIDOGREL BISULFATE 75 MG TABLET PO SCH (09:00)
[2017-08-06] MEDS ORDERED: CELECOXIB 200 MG CAPSULE. PO SCH (09:00)
[2017-08-06 09:42] VITALS: BP 154/66
[2017-08-06] MEDS: FAMOTIDINE 20 MG TABLET. PO SCH (09:42)
--- NOTE | 2017-08-06 12:13 | PDOC ---
CARDIO Progress Notes Date and Time Date of Service 08/06/2017 Time of Evaluation 1000 Subjective Subjective: No Chest Pain, No shortness of breath, No Palpitations, No Dizziness, Other (no further symtpoms overnight) Vitals Vitals Vital Signs Date Time Temp Pulse Resp B/P (MAP) Pulse Ox O2 Delivery O2 Flow Rate FiO2 08/06/17 09:42 77 154/66 08/06/17 08:05 Room Air 08/06/17 07:00 97.3 20 94 97.3 Weight Weight [ ] Laboratory Labs Laboratory Tests Test 08/06/17 07:16 Troponin I Quantitative < 0.017 ng/mL (0.000-0.055) Physical Exam HEENT: Neck Supple W Full Motion Chest: Symmetric LUNGS: Clear to Auscultation Heart: S1S2, RRR (SR, no significant ectopies overnight) Abdomen: Soft N/T Extremities: No Calf Tenderness Neurology: alert, oriented, follow commands Assessment Assessment 1. Dizziness: Suspect vasovagal episode. Neg for orthostasis 2. Sinus bradycardia: HR 50s otherwise 60s mainly. No pauses or significant ectopies 3. CAD: S/P recent PCI/COLETTE with rotational atherectomy to LAD/LM on 04/16/2017. Stable 4. HTN: controlled 5. HLP 6. CKD3 Recommendations 1. Continue with DAPT 2. PPI and secondary prevention measures 3. 4 wk outpt event monitor, then f/y in office. 4. May DC per cardiac standpoint STORMY WALTER APRN Aug 06, 2017 12:13
--- NOTE | 2017-08-06 12:31 | PDOC3 ---
Discharge Summary Visit Information Date of Admission: Aug 05, 2017 Date of Discharge: Aug 06, 2017 Admitting Diagnosis Comment: VAso vagal 1. Dizziness: Suspect vasovagal episode. Neg for orthostasis 2. Sinus bradycardia: HR 50s otherwise 60s mainly. No pauses or significant ectopies 3. CAD: S/P recent PCI/COLETTE with rotational atherectomy to LAD/LM on 04/16/2017. Stable 4. HTN: controlled 5. HLP 6. CKD3 Final Diagnosis Problems Medical Problems: (1) Dizziness Status: Acute (2) R06.02 Status: Acute Brief Hospital Course Allergies Allergies Coded Allergies Type Severity Reaction Last Updated Verified codeine Allergy Intermediate Anxiety 03/20/14 Yes morphine Allergy Intermediate anxiety 04/14/17 Yes Vital Signs Vital Signs Date Time Temp Pulse Resp B/P (MAP) Pulse Ox O2 Delivery O2 Flow Rate FiO2 08/06/17 09:42 77 154/66 08/06/17 08:05 Room Air 08/06/17 07:00 97.3 20 94 97.3 Lab Results Laboratory Tests Test 08/05/17 09:00 08/06/17 07:16 White Blood Count 5.4 x10^3/uL (4.0-11.0) Red Blood Count 4.79 x10^6/uL (4.30-5.70) Hemoglobin 14.8 g/dL (13.0-17.5) Hematocrit 43.1 % (39.0-53.0) Mean Corpuscular Volume 90 fL (79-100) Mean Corpuscular Hemoglobin 31 pg (25-35) Mean Corpuscular Hemoglobin Concent 34 g/dL (31-37) Red Cell Distribution Width 13.9 % (11.5-14.5) Platelet Count 221 x10^3/uL (140-400) Neutrophils (%) (Auto) 52 % (31-73) Lymphocytes (%) (Auto) 35 % (24-48) Monocytes (%) (Auto) 8 % (0-9) Eosinophils (%) (Auto) 4 % (0-3) Basophils (%) (Auto) 1 % (0-3) Neutrophils # (Auto) 2.8 x10^3uL (1.8-7.7) Lymphocytes # (Auto) 1.9 x10^3/uL (1.0-4.8) Monocytes # (Auto) 0.4 x10^3/uL (0.0-1.1) Eosinophils # (Auto) 0.2 x10^3/uL (0.0-0.7) Basophils # (Auto) 0.1 x10^3/uL (0.0-0.2) Prothrombin Time 12.9 SEC (11.7-14.0) Prothromb Time International Ratio 1.0 (0.8-1.1) Sodium Level 140 mmol/L (136-145) Potassium Level 4.4 mmol/L (3.5-5.1) Chloride Level 106 mmol/L (98-107) Carbon Dioxide Level 24 mmol/L (21-32) Anion Gap 10 (6-14) Blood Urea Nitrogen 24 mg/dL (8-26) Creatinine 1.4 mg/dL (0.7-1.3) Estimated GFR (Cockcroft-Gault) 49.7 Glucose Level 143 mg/dL (70-99) Calcium Level 8.6 mg/dL (8.5-10.1) Total Bilirubin 0.6 mg/dL (0.2-1.0) Direct Bilirubin 0.1 mg/dL (0.0-0.2) Aspartate Amino Transf (AST/SGOT) 46 U/L (15-37) Alanine Aminotransferase (ALT/SGPT) 59 U/L (16-63) Alkaline Phosphatase 79 U/L (46-116) Creatine Kinase 162 U/L (39-308) Creatine Kinase MB (Mass) 1.7 ng/mL (0.0-3.6) Creatine Kinase MB Relative Index 1.0 % (0-4) Troponin I Quantitative < 0.017 ng/mL (0.000-0.055) < 0.017 ng/mL (0.000-0.055) PA-Yoq-J-Type Natriuretic Peptide 48 pg/mL (0-124) Total Protein 6.6 g/dL (6.4-8.2) Albumin 3.7 g/dL (3.4-5.0) Triglycerides Level 208 mg/dL (0-150) Cholesterol Level 113 mg/dL (0-200) LDL Cholesterol, Calculated 40 mg/dL (0-100) VLDL Cholesterol, Calculated 42 mg/dL (0-40) Non-HDL Cholesterol Calculated 82 mg/dL (0-129) HDL Cholesterol 31 mg/dL (40-60) Cholesterol/HDL Ratio 3.6 Lipase 93 U/L (73-393) Laboratory Tests Test 08/06/17 07:16 Troponin I Quantitative < 0.017 ng/mL (0.000-0.055) Brief Hospital Course Mr. Killian is a 72 old [sex] very pleasant male who was admitted after having a dizzy spell while walking in cardiac rehab. He does have cardiac hx, so admitted overnight, NO ectopies etc, felt good, Seen by his cards, cleared for home and ff up as OP. NO change in meds, Likely vagal per cards too, . Seen and examined. Dc < 30 Discharge Information Condition at Discharge: Improved, Stable Disposition/Orders: D/C to Home Scheduled Aspirin (Aspirin Ec), 325 MG PO DAILY, (Reported) Celecoxib (Celebrex), 1 CAP PO DAILY, (Reported) Clopidogrel Bisulfate (Clopidogrel), 75 MG PO DAILY, (Reported) Fexofenadine Hcl (Marcia Allergy), 180 MG PO DAILY, (Reported) Losartan Potassium (Losartan Potassium), 25 MG PO DAILY, (Reported) Metoprolol Succinate (Metoprolol Succinate ( Xl )), 12.5 MG PO DAILY Multivitamin (Multi Vitamin Daily), 1 EACH PO DAILY, (Reported) Clinchco-3 Fatty Acids/Fish Oil (Fish Oil 1,000 Mg Softgel), 1 EACH PO DAILY, ( Reported) Ranitidine Hcl (Zantac), 150 MG PO BID, (Reported) Simvastatin (Zocor), 40 MG PO HS, (Reported) Tamsulosin Hcl (Flomax), 0.4 MG PO HS, (Reported) Tramadol Hcl (Ultram), 50 MG PO HS, (Reported) Scheduled PRN Nitroglycerin (NITROGLYCERIN SubLingual), 0.4 MG SL PRN Q5MIN PRN for CHEST PAIN , (Reported) Discontinued Medications Metoprolol Tartrate (Metoprolol Tartrate), 12.5 MG PO BID, (Reported) Discontinued Reason: DISCONTINU Prasugrel Hcl (Effient), 10 MG PO DAILYWBKFT Discontinued Reason: DISCONTINU CHRISTOPHER SOLANO MD Aug 06, 2017 12:31
== END 2017-08-06 13:50 | disposition home or self-care (01) ==
LOC: ER 08:42 → ED HOLD 09:54 → 2 SOUTH 14:45
PROVIDERS: ADMIT Internal Medicine Hematology & Oncology; ATTEND Internal Medicine Hematology & Oncology
DX: R42 Dizziness and giddiness (principal); R00.1 Bradycardia, unspecified; I12.9 Hypertensive chronic kidney disease with stage 1 through stage 4 chronic kidney disease, or unspecified chronic kidney disease; N18.3 Chronic kidney disease, stage 3 (moderate); I25.10 Atherosclerotic heart disease of native coronary artery without angina pectoris; E78.5 Hyperlipidemia, unspecified; K21.9 Gastro-esophageal reflux disease without esophagitis; N40.0 Benign prostatic hyperplasia without lower urinary tract symptoms; M19.90 Unspecified osteoarthritis, unspecified site; E78.00 Pure hypercholesterolemia, unspecified; Z87.891 Personal history of nicotine dependence; Z90.49 Acquired absence of other specified parts of digestive tract; Z95.1 Presence of aortocoronary bypass graft; Z96.651 Presence of right artificial knee joint; Z98.61 Coronary angioplasty status
CPT/HCPCS: 36415; 71010; 80048; 80061; 80076; 82553; 83690; 83880; 84484; 85025; 85610; 93005; 99285; G0378; G0379